=== PATIENT | male | born 2005 | race Caucasian/White ===

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

== ENCOUNTER 2024-09-02 01:09 | Inpatient (IN) | payer MEDICAID, SELFPAY ==
[2024-09-02] VITALS (16 sets, daily range): BP systolic 100–136; BP diastolic 45–75; PULSE 73–105; RESP 16–18; TEMP 36.6–37.7; O2SAT 93–100; BMI 26.3
--- NOTE | ~2024-09-02 | CT_ITS ---
CLINICAL HISTORY: Perforated appendicitis status post lap appendectomy. Postoperative CAT scan demonstrates multiple fluid collections. Patient presents for drainage of the right lower quadrant abscess. PROCEDURES: 1. Limited preprocedure CT of the abdomen. Permanent images saved in PACS. 2. CT-guided drainage of the right lower quadrant/pericecal fluid collection. 3. Limited post procedure CT of the abdomen. Permanent images saved in PACS. CLINICIANS: Albert Madden PA-C Preprocedural imaging reviewed with Dr. Ann MEDICATIONS: -Versed 2 mg, Fentanyl 100 mcg, and lidocaine 1% 10 mL SQ -Antibiotics: None -For additional details, please see nursing flowsheet. COMPLICATIONS: None ESTIMATED BLOOD LOSS: < 5 ml CONTRAST: None SPECIMENS: A specimen was sent for culture. MODERATE SEDATION TIME: 32 min PROCEDURE NOTE: The procedure, risks, benefits, and alternatives were carefully explained to the patient and written informed consent was obtained. The patient was placed supine on the CT table. A timeout was performed. A limited CT of the abdomen was performed to localize the fluid collection and choose appropriate needle entry and trajectory. The patient was prepped and draped in usual sterile fashion. The skin and subcutaneous tissues were anesthetized with lidocaine. Under CT guidance, a trocar was advanced to the fluid collection. Serous fluid was immediately aspirated. A 0.0035 J wire was inserted through the the trocar needle and coiled in the fluid collection. The trocar needle was then removed over the wire. The tract was then serially dilated. Over the wire, a 10 fr all-purpose drainage catheter was advanced and coiled into the fluid collection under CT guidance. The wire was then removed. A total of 15 ml of serous fluid was removed and sent for culture. The catheter was secured to the skin with a 2-0 nylon suture. A GOMEZ bulb was then attached to the drainage catheter. A limited postprocedure CT was then obtained. The patient was stable after the procedure and was transferred to the post anesthesia care unit. The procedure was done under moderate sedation with a dedicated nurse for monitoring of vital signs. CT/CT guided drainage Impression: CT guided drainage of a right lower quadrant/pericecal fluid collection. This procedure was performed by Albert Madden PA-C and supervised by Dr. Ann. Electronically signed by: Nitin Ann MD 09/09/2024 02:50 PM [facility]
--- NOTE | ~2024-09-02 | CT_ITS ---
EXAMINATION: CT ABDOMEN AND PELVIS WITH CONTRAST CLINICAL INFORMATION: Right lower quadrant pain. COMPARISON: None available. TECHNIQUE: Multidetector volumetric images were obtained from the superior aspect of the liver through the pubic symphysis following administration 85 mL of Omnipaque 350 intravenous contrast. Sagittal and coronal reformatted images were obtained on the technologist's workstation. Oral contrast: No This CT examination was performed using dose optimization techniques as appropriate, variously including the following: *Automated exposure control *Adjustment of mA and/or kV according to patient size (this includes techniques or standardized protocols for targeted exams where dose is matched to indication/reason for exam; i.e. extremities or head) *Use of iterative reconstruction technique DLP: 562 mGy-cm FINDINGS: LUNG BASES: The visualized lung bases are unremarkable. LIVER, GALLBLADDER, AND BILIARY TREE: The liver is normal in size, shape, and attenuation. No focal hepatic lesion or biliary ductal dilatation is present. The gallbladder is unremarkable with no evidence of radiopaque gallstones, gallbladder wall thickening, or obvious pericholecystic inflammatory changes. PANCREAS: Unremarkable. SPLEEN: Unremarkable. ADRENAL GLANDS: Unremarkable. KIDNEYS AND URETERS: The kidneys are normal in size, shape, and attenuation. No hydronephrosis, hydroureter, or calculi seen. No perinephric stranding. BLADDER: Unremarkable. GASTROINTESTINAL TRACT: The appendix is abnormally dilated to lateral wall diameter of 13 mm. Mild periappendiceal inflammatory changes present. 4 intraluminal appendicoliths are present within the distal appendix towards the fundus, with the largest measuring 4 mm diameter. The terminal ileum is normal in appearance. Reactive appearing lymph nodes are present adjacent to the cecum. No free intraperitoneal fluid or gas collections identified. Normal appearance of the sigmoid mesentery and small bowel mesentery. Normal appearance of the stomach and duodenum. ABDOMINAL WALL: No significant hernia is appreciated. LYMPH NODES: Normal. VASCULAR: Unremarkable. PELVIC VISCERA: Normal appearance of the prostate and seminal vesicles OSSEOUS STRUCTURES: No suspicious skeletal lesions. CT/CT abdomen pelvis w IV con IMPRESSION: Acute uncomplicated appendicitis. The appendix is dilated to 13 mm in outer wall diameter with mild periappendiceal inflammatory changes and four (4) intraluminal appendicoliths, the largest measuring 4 mm in diameter. No free intraperitoneal fluid or gas collections. Normal terminal ileum. This critical result was discussed with Celine Gwynn, DO by telephone at 09/02/2024 2:59 AM EST and it was ascertained that the content and urgency of the report was understood at the time of direct communication. Electronically signed by: Jacinto Cheek MD 09/02/2024 03:02 AM [facility]
--- NOTE | ~2024-09-02 | CT_ITS ---
EXAMINATION: CT ABDOMEN AND PELVIS WITH CONTRAST CLINICAL INFORMATION: Status post appendectomy. Concerning abscesses. COMPARISON: CT dated September 05, 2024. TECHNIQUE: Multidetector volumetric images were obtained from the superior aspect of the liver through the pubic symphysis following administration 85 mL of Omnipaque 350 intravenous contrast. Sagittal and coronal reformatted images were obtained on the technologist's workstation. Oral contrast: No This CT examination was performed using dose optimization techniques as appropriate, variously including the following: *Automated exposure control *Adjustment of mA and/or kV according to patient size (this includes techniques or standardized protocols for targeted exams where dose is matched to indication/reason for exam; i.e. extremities or head) *Use of iterative reconstruction technique DLP: 398 mGy-cm FINDINGS: [Multiple, probably loculated/, peripheral enhancing fluid collections throughout the pelvic peritoneal cavity and the right hemiabdomen/peritoneal cavity extending from the inferior perihepatic region. There are segmental areas of the wall thickening gas and fluid-filled jejunal loops with air-fluid levels. There are multiple prominent likely reactive lymph nodes in the mesentery and to a lesser extent retroperitoneal/periaortic. Questionable tiny extraluminal air pockets along the right hemicolectomy peritoneal. Liver measures 18 cm. Focal hypodensities in the falciform ligament and left hepatic lobe. Portal veins, hepatic veins and intrahepatic portions of the IVC are patent. Spleen measures 13 cm. No pericholecystic fluid collection or gallbladder wall thickening. No intrahepatic or extrahepatic biliary ductal dilatation. No focal pancreatic lesion or main pancreatic ductal dilatation. No nodular lesions in the adrenal glands. No hydronephrosis in the kidney. Areas of hypodensity and decreased enhancement throughout the kidneys. No aneurysm or dissection abdominal aorta. Bilateral pleural effusions, small to moderate volume. Soft tissue contusion size in the fat planes of the periumbilical and left lower abdominal wall likely related to recent surgical CT. No acute fracture or listhesis in the axial skeleton. CT/CT abdomen pelvis w IV con IMPRESSION: Multifocal, likely loculated peritoneal abscesses. Reactive lymphadenopathy and regional ileus. Discussed with the requesting physician Dr. Vinny Quintanilla at 11:35 AM. Hepatosplenomegaly. Fleischner guidelines were followed. Electronically signed by: Daniel Emerson MD 09/07/2024 11:38 AM EST
--- NOTE | ~2024-09-02 | CT_ITS ---
EXAMINATION: CT ABDOMEN PELVIS WITH IV CONTRAST CLINICAL INFORMATION: Fever post-op COMPARISON: Prior CT scan September 02, 2024 TECHNIQUE: Multidetector volumetric imaging was performed from the superior aspect of the liver through the pubic symphysis 100 mL of Omnipaque 350 injected Sagittal and coronal reformatted images were obtained on the technologist's workstation. This CT examination was performed using dose optimization techniques as appropriate, variously including the following: *Automated exposure control *Adjustment of mA and/or kV according to patient size (this includes techniques or standardized protocols for targeted exams where dose is matched to indication/reason for exam; i.e. extremities or head) *Use of iterative reconstruction technique DLP: 628 mGy-cm FINDINGS: LOWER THORAX: There are bilateral small pleural effusions right more than left with adjacent compression atelectasis at lung bases. HEPATOBILIARY: No focal hepatic lesions. No biliary ductal dilatation. GALLBLADDER: Gallbladder unremarkable. SPLEEN: Spleen is normal in size. PANCREAS: No focal mass or ductal dilatation. STOMACH AND GASTROINTESTINAL TRACT: Stomach is grossly unremarkable. Postsurgical changes from prior appendectomy. The appendix has been removed. Mild pericecal fat stranding probably from recent surgery. Free air in the abdomen, likely from recent appendectomy. No evidence of bowel dilatation or obstruction. ADRENALS: No adrenal nodules. KIDNEYS/URETERS: No hydronephrosis, stones or solid mass lesions. URINARY BLADDER: Partially decompressed. PELVIC VISCERA: Unremarkable PERITONEUM: No free air or fluid. LYMPH NODES: No lymphadenopathy. VASCULAR:Abdominal aorta normal in size, no aneurysm found. BONES, ABDOMINAL WALL AND SOFT TISSUES: Age-appropriate changes of the spine and skeletal system, no destructive osteolytic or osteosclerotic bone lesion found CT/CT abdomen pelvis w IV con IMPRESSION: 1. Postsurgical changes from recent appendectomy. Mild pericecal fat stranding, free air in the abdomen, likely from recent surgery. 2. No evidence of bowel obstruction. 3. Bilateral small pleural effusions right more than left with adjacent compression atelectasis at lung bases. Electronically signed by: Nathalie Cote MD 09/05/2024 12:39 PM [facility]
[2024-09-02 01:36] LABS: MANUAL DIFF FLAG NO
[2024-09-02 01:38] LABS: Basophils Percent Auto 0.3 % (0-2); Hematocrit 43.2 % (42.0-52.0); Hemoglobin 14.7 g/dl (14.0-18.0); Imm Gran Abs Auto 0.05 X10*3/uL (0.00-0.03); Imm Gran Pct Auto 0.4 % (0.0-0.4); Lymphocytes Absolute Auto 0.8 X10*3/uL (1.2-4.9); Lymphocytes Percent Auto 5.7 % (20-40); Mean Corpuscular Hemoglobin 28.4 pg (27.0-33.0); Mean Corpuscular Volume 83.4 fL (80.0-98.0); Mean Platelet Volume 10.8 fL (9.4-12.4); Monocytes Absolute Auto 1.2 X10*3/uL (0.1-1.2); Monocytes Percent Auto 8.5 % (2-11); Neutrophils Absolute Auto 11.9 x10*3/uL (2.0-8.3); Neutrophils Percent Auto 85.1 % (45-73); Platelet Count 223 X10*3/uL (160-400); Red Blood Count 5.18 X10*6/uL (4.60-5.80); Red Cell Distribution Width 12.7 % (11.0-16.0); White Blood Count 13.9 X10*3/uL (4.8-10.8)
[2024-09-02 02:02] LABS: Albumin Level 4.7 g/dL (3.5-5.0); Anion Gap 16 (12-20); Aspartate Amino Transferase 22 U/L (5-37); Bilirubin Total 1.4 mg/dL (0.0-1.0); Blood Urea Nitrogen 15 mg/dL (9-16); Calcium 9.7 mg/dL (8.4-10.2); Carbon Dioxide 25 mmol/L (22-29); Chloride 103 mmol/L (96-108); Creatinine Clr Calc Pharmacy 125.5; Estimated Glomerular Filt Rate > 60; Glucose Random 118 mg/dL (60-115); Lipase 9 U/L (8-78); Potassium 3.4 mmol/L (3.3-5.1); Sodium 141 mmol/L (135-145); Total Protein 8.1 g/dL (6.5-8.0)
[2024-09-02 02:04] LABS: Alanine Aminotransferase 17 U/L (0-40); Alkaline Phosphatase 69 U/L (39-117)
--- NOTE | 2024-09-02 02:12 | ED_ITS ---
HPI - Abdominal Pain General Chief Complaint: Abdominal Pain Stated Complaint: abdominal pain Time Seen by Provider: 09/02/24 01:53 Source: patient and family Mode of arrival: ambulatory Limitations: no limitations History of Present Illness ED Provider: LAVERNE HPI narrative: 19 yo male with no PMH here with c/o RLQ pain and lower abdominal pain with n/v. He notes no diarrhea, fevers. Hurts to move. Has not had this before, no recent travel, procedures, sick contacts MD elicited complaint: abdominal pain Pertinent past history: none Onset (ago): day(s) (1) Pain Consistency: constant Location: RLQ and suprapubic Severity: moderate Quality: aching Migration to: no migration Exacerbating factors: eating and movement Relieving factors: nothing Associated symptoms: nausea and vomiting Related Data Previous Rx's ?Medication ?Instructions ?Recorded ibuprofen 200 mg tablet 400 mg (2 x 200 mg) PO Q8H PRN 04/24/22 pain 7 days #21 tabs polymyxin B sulfate 10,000 1 drp ophthalmic-Left Q3H 7 days 06/28/23 unit-trimethoprim 1 mg/mL eye drops #10 mL Allergies Allergy/AdvReac Type Severity Reaction Status Date / Time No Known Allergies Allergy Verified 09/02/24 01:17 Review of Systems Review of Systems Constitutional : No Weight loss, No Fever, No Chills ENT/Mouth : No sore throat, No Rhinorrhea Eyes: No Swelling, No Redness Cardiovascular : No Chest Pain, No SOB, NoEdema Respiratory : No Cough, No Sputum, No Wheezing Gastrointestinal : Positive Nausea, Positive Vomiting, no Diarrhea, positive abdominal Pain, No Hematochezia, No Melena Genitourinary : No Dysuria, No Urinary Frequency, No Hematuria, No Urgency Musculoskeletal : No joint pain, No Myalgias, No Joint Swelling Skin : No Skin Lesions, No rash Neuro : No Weakness, No Numbness, No Dizziness, No Headache All other systems reviewed and are negative. [facility] Past Medical History Attestation statement: The following information was validated with the patient. Source: old records reviewed Medical History Patient denies medical problems No known health problems Family History Family History (Updated 08/17/20 @ 22:52 by Sloan Tadeo DO) Other Family history non-contributory Social History Social History Alcohol intake: never Advance Directives: No Advance Directives Information Provided: Yes Do you have a plan to hurt others: No Plan Physical Exam ED Vital Signs: Vital Signs - 24 hr 09/02/24 01:16 Temperature 98.5 F Pulse Rate 99 Respiratory Rate 18 Blood Pressure 136/75 Pulse Oximetry 100 Oxygen Delivery Method Room Air BMI result Body Mass Index 26.3 Appearance: Alert. Oriented X3. No acute distress. Eyes: Pupils equal, round and reactive to light. ENT: Pharynx normal. Neck: Normal inspection. Neck supple. CVS: Normal heart rate and rhythm. Pulses normal. Respiratory: No respiratory distress. Breath sounds normal. Abdomen: Soft and moderate lower abdominal ttp, invol guarding RLQ no rebound. Skin: Skin warm and dry. Normal skin color. Normal skin turgor. Extremities: No lower extremity edema. No calf ttp Neuro: Oriented X 3. No motor deficit. No sensory deficit. Medical Decision Making Medical Decision Making [facility] Narrative: 19 yo male no PMH here with RLQ pain and n/v at this time will obtain labs, UA, CT scan for renal colic, appendicitis. Could be viral illness as well. He has no rebound on my exam. Differential Diagnosis Differential Diagnoses: The differential diagnosis associated with the presentation includes viral illness, renal colic, appendicitis Admission/Observation Consideration of admission/observation: Escalation of care including admission/observation considered Lab Data [facility] Lab Attestation statement: I reviewed the patient's lab results. 09/02/24 01:30 09/02/24 01:30 Labs: Lab Results 09/02/24 09/02/24 Range/Units 01:30 01:32 WBC 13.9 H (4.8-10.8) X10*3/uL RBC 5.18 (4.60-5.80) X10*6/uL Hgb 14.7 (14.0-18.0) g/dl Hct 43.2 (42.0-52.0) % MCV 83.4 (80.0-98.0) fL MCH 28.4 (27.0-33.0) pg MCHC 34.0 (31.0-36.0) g/dl RDW 12.7 (11.0-16.0) % Plt Count 223 (160-400) X10*3/uL MPV 10.8 (9.4-12.4) fL Immature Gran % (Auto) 0.4 (0.0-0.4) % Neut % (Auto) 85.1 H (45-73) % Lymph % (Auto) 5.7 L (20-40) % [place] % (Auto) 8.5 (2-11) % Eos % (Auto) 0.0 (0-4) % Baso % (Auto) 0.3 (0-2) % Lymph # (Auto) 0.8 L (1.2-4.9) X10*3/uL [place] # (Auto) 1.2 (0.1-1.2) X10*3/uL Eos # (Auto) 0.0 (0.0-0.4) X10*3/uL Baso # (Auto) 0.0 (0.0-0.2) X10*3/uL Abs Immat Gran (auto) 0.05 H (0.00-0.03) X10*3/uL Absolute Neuts (auto) 11.9 H (2.0-8.3) x10*3/uL Absolute Nucleated RBC 0.000 (0.0-0.012) X10*3/uL Nucleated RBC % (auto) 0.0 (0.0-0.2) /100WBC Sodium 141 (135-145) mmol/L Potassium 3.4 (3.3-5.1) mmol/L Chloride 103 (96-108) mmol/L Carbon Dioxide 25 (22-29) mmol/L Anion Gap 16 (12-20) BUN 15 (9-16) mg/dL Creatinine 1.00 (0.5-1.4) mg/dL Estim Creat Clear Calc 125.5 Estimated GFR > 60 Random Glucose 118 H (60-115) mg/dL Calcium 9.7 (8.4-10.2) mg/dL Total Bilirubin 1.4 H (0.0-1.0) mg/dL AST 22 (5-37) U/L ALT 17 (0-40) U/L Alkaline Phosphatase 69 (39-117) U/L Total Protein 8.1 H (6.5-8.0) g/dL Albumin 4.7 (3.5-5.0) g/dL Lipase 9 (8-78) U/L Influenza Type A (PCR) NEGATIVE (Negative) Influenza Type B (PCR) NEGATIVE (Negative) RSV RNA Qual (PCR) NEGATIVE (Negative) SARS-CoV-2 RNA (RT-PCR) NEGATIVE (Negative) Independent Interpretation I performed an independent interpretation of an: CT Scan Radiology Impression Discussion of test interpretation with radiology: I discussed test interpretation with the radiologist and I have reviewed the radiologist's reading. Radiologist Impression: call from Radiology 259am + appendicitis uncomplicated will notify surgery and admit start on zosyn no SIRS on arrival Independent Historian Clinical information obtained from an independent historian. History obtained from or confirmed by: Parent Medications Administered Discontinued Medications Generic Name Dose Route Start Last Admin Trade Name Freq PRN Reason Stop Dose Admin Sodium Chloride 1,000 mls @ 999 mls/hr 09/02/24 01:53 09/02/24 02:13 Ns IV 09/02/24 02:53 999 mls/hr .Q1H1M ONE Administration Iohexol 85 ml 09/02/24 02:42 09/02/24 02:44 Iohexol 350 Mg/Ml 100 Ml Infus..Btl IV 09/02/24 02:43 85 ml ONCE ONE Administration Ketorolac Tromethamine 15 mg 09/02/24 01:53 09/02/24 02:13 Ketorolac Tromethamine 15 Mg/Ml Vial IVPUSH 09/02/24 01:54 15 mg ONCE ONE Administration Ondansetron HCl 4 mg 09/02/24 01:53 09/02/24 02:13 Ondansetron Hcl 4 Mg/2 Ml Vial IVPUSH 09/02/24 01:54 4 mg ONCE ONE Administration Discharge Plan Discharge Clinical Impression: Abdominal pain, Acute appendicitis Patient Disposition: Admitted As Inpatient Prescriptions: No Action ibuprofen 200 mg tablet 400 mg PO Q8H PRN (Reason: pain) 7 Days Qty: 21 0RF polymyxin B sulf-trimethoprim 10,000 unit- 1 mg/mL drops 1 drp ophthalmic-Left Q3H 7 Days Qty: 10 1RF Rx Instructions: while awake; do not exceed 6 doses in 24 hours Print Language: Macedonian
[2024-09-02] MEDS: ondansetron HCL 4 MG/2 ML VIAL IVPUSH (02:13)
[2024-09-02] MEDS: 0.9 % Sodium Chloride 1,000 ML 999 ML IV (02:13)
[2024-09-02] MEDS: Ketorolac Tromethamine 15 MG/ML VIAL IVPUSH (02:13)
[2024-09-02 02:14] LABS: Influenza A PCR NEGATIVE (Negative); Influenza B PCR NEGATIVE (Negative); Resp Syncy Virus RNA Qual PCR NEGATIVE (Negative); SARS COV2 PCR INHOUSE NEGATIVE (Negative)
[2024-09-02] MEDS: iohexoL 350 MG/ML 100 ML INFUS..BTL 85 ML IV (02:44)
--- NOTE | 2024-09-02 03:12 | PC.NURSE ---
Per MD Mathews, no BCX/lactic needed.
[2024-09-02] MEDS: Piperacillin Sodium/Tazobactam 3.375 GM in 0.9 % Sodium Chloride 50 ML IV ×4 (03:46→22:11)
[2024-09-02] MEDS: Acetaminophen 1,000 MG/100 ML PIGGYBACK 400 MG IV ×4 (03:47→22:46)
--- NOTE | 2024-09-02 03:52 | PC.NURSE ---
Tried to eat soup around 2100 last night. Has been NPO since.
[2024-09-02] MEDS: Dextrose 5 % and Lactated Ring 1,000 ML 125 ML IVCONT ×3 (04:12→17:32)
--- NOTE | 2024-09-02 08:07 | P.HPGS_ITS ---
History of Present Illness History of Present Illness Date of Service: 09/02/24 Chief complaint: Acute Appendicitis Narrative: Nikko Lozano is a 19 year old male presenting with complaints of abdominal pain in the right upper quadrant. This began yesterday as a generalized abdominal pain but then radiated to the right lower quadrant. The pain was associated with nausea and vomiting but without fever or chills. He denies a previous history of similar pain. The pain seems to increase with movement/walking but improves when laying still. He denies diarrhea or constipation. He presented to the emergency department was noted to have an elevated WBC of 13.9. Subsequent CT abdomen and pelvis revealed a distended appendix and surrounding inflammatory changes with fecalith within the lumen suggestive of acute appendicitis. He was admitted to the surgical service for further management of his acute appendicitis. Review of Systems Review of Systems: Yes all other systems are reviewed and are negative Constitutional: Constitutional: Denies anorexia, Denies chills, Denies fever(s) and Reports poor appetite Cardiovascular: Cardiovascular: Reports no additional cardiovascular complaints Respiratory: Respiratory: Denies cough, Denies pain with cough and Denies stridor Gastrointestinal: Gastrointestinal: Reports abdominal pain, Denies diarrhea, Reports nausea and Reports vomiting Genitourinary: Genitourinary: Reports no additional male genitourinary complaints Musculoskeletal: Musculoskeletal: Reports no additional musculoskeletal complaints Integumentary/Breasts: Skin/Breast: Reports system reviewed and no additional complaints, except as docu Neurologic: Reports system reviewed and no additional complaints, except as documented Psychiatric: Psychiatric: Reports no additional psychiatric complaints PMFSH Past Medical History Medical History Patient denies medical problems No known health problems Family History Family History (Updated 08/17/20 @ 22:52 by lSoan Tadeo DO) Other Family history non-contributory Social History Social History Alcohol intake: never Advance Directives: No Advance Directives Information Provided: Yes Do you have a plan to hurt others: No Plan Meds Allergies Allergy/AdvReac Type Severity Reaction Status Date / Time No Known Allergies Allergy Verified 09/02/24 01:17 Active Medications: Current Medications Hydromorphone HCl (Hydromorphone Hcl 0.5 Mg/0.5 Ml Syringe) 0.5 mg IVPUSH Q3H PRN; Protocol PRN Reason: Pain, Severe (Pain Scale 7-10) Acetaminophen (Ofirmev) 1,000 mg in 100 mls @ 400 mls/hr IV Q6H [facility] Stop: 09/02/24 22:14 Last Infusion: 09/02/24 08:02 Dose: Infused Dextrose/Lactated Ringer's (D5lr) 1,000 mls @ 125 mls/hr IVCONT .Q8H [facility] Last Admin: 09/02/24 04:12 Dose: 125 mls/hr Piperacillin Sod/Tazobactam (Sod 3.375 gm/ Sodium Chloride) 50 mls @ 100 mls/hr IV Q6H [facility] [place] Magnesium Hydroxide (Milk Of Magnesia 30 Ml Oral.Susp) 30 ml PO DAILY PRN PRN Reason: Constipation Ondansetron HCl (Ondansetron Hcl 4 Mg/2 Ml Vial) 4 mg IVPUSH QID PRN PRN Reason: Nausea Sodium Chloride (0.9 % Sodium Chloride Flush 3 Ml Syringe) 3 ml IVFLUSH QSHIFT [facility] [place] Last Admin: 09/02/24 08:03 Dose: Not Given Zolpidem Tartrate (Zolpidem Tartrate 5 Mg Tablet) 5 mg PO BEDTIME PRN PRN Reason: Insomnia Physical Exam Vital Signs: Vital Signs: Last Vital Signs Temp 98.5 F 09/02/24 03:14 Pulse 89 09/02/24 03:14 Resp 16 09/02/24 03:14 BP 129/60 09/02/24 03:14 Pulse Ox 99 09/02/24 03:14 O2 Del Method Room Air 09/02/24 03:14 BMI result Body Mass Index 26.3 Const: General: cooperative and no acute distress Nutritional Appearance: well nourished Orientation/consciousness: patient oriented x3 Limitations: no limitations HEENT: Head: Yes normocephalic and Yes atraumatic Ears: hearing grossly normal bilaterally Resp: Effort & Inspection: normal respiratory effort, no audible wheezes, no cough and no respiratory distress Cardio: Jugular venous distension: no JVD GI: Inspection: Yes normal to inspection Palpation (GI): Soft to palpation, Tenderness to palpation present (GI) in the RLQ and Rovsing's sign positive and No hepatosplenomegaly present Percussion: Yes normal to percussion Auscultation: normal bowel sounds Rectal Exam - Male: Yes deferred Skin: Other: Warm, dry, no rash Neuro: General: patient oriented x3 Extrem: General: Yes no clubbing, cyanosis or edema Results Results Labs: Short CBC 09/02/24 Range/Units 01:30 WBC 13.9 H (4.8-10.8) X10*3/uL Hgb 14.7 (14.0-18.0) g/dl Hct 43.2 (42.0-52.0) % Plt Count 223 (160-400) X10*3/uL BMP 09/02/24 01:30 Sodium 141 Potassium 3.4 Chloride 103 Carbon Dioxide 25 BUN 15 Creatinine 1.00 Calcium 9.7 Liver Function 09/02/24 Range/Units 01:30 Total Bilirubin 1.4 H (0.0-1.0) mg/dL AST 22 (5-37) U/L ALT 17 (0-40) U/L Alkaline Phosphatase 69 (39-117) U/L Albumin 4.7 (3.5-5.0) g/dL Abdomen CT scan report/results: image reviewed CT scan - pelvis: image reviewed Assessment and Plan (1) Acute appendicitis: Qualifiers: Acute appendicitis type: with localized peritonitis Appendicitis abscess presence: without abscess Appendicitis gangrene presence: without gangrene Appendicitis perforation presence: without perforation Qualified Code (s): K35.30 - Acute appendicitis with localized peritonitis, without perforation or gangrene Status: Acute Plan 19-year-old male patient presenting with complaints of right lower quadrant abdominal pain of 24 hours duration found to have tenderness in the right lower quadrant over McBurney's point. Workup revealed an elevated WBC and CT revealed changes suggestive of acute appendicitis. I recommended a laparoscopic or possible open appendectomy and after discussion of the procedure, risks, and alternatives, consents to the surgery. He has been added onto the operative schedule for today. Quality Stroke Does the patient have a stroke diagnosis?: No VTE Prior VTE?: No VTE Risk Level:: Surgical - low VTE Device Contraindication: N/A - Device Ordered VTE Drug Contraindication: Treatment Not Indicated Procedures Date of Service Date of Service: 09/02/24
--- NOTE | 2024-09-02 09:18 | PHA.MEDREC ---
Addendum entered by Waleska Dupree RPh 09/02/24 09:20: Reviewed by [facility] Original Note: Pharmacy Consult ? Medication Reconciliation Pharmacy has completed the medication reconciliation.
--- NOTE | 2024-09-02 10:21 | PC.NURSE ---
new 22gIV placed in the right wrist - medication administered per provider order. pt seen by ED provider/aware of plan of care in regards to being admitted at this time. pt waiting to be seen by hospitalist at this time. plan of care ongoing. call siddiqui placed within reach.
--- NOTE | 2024-09-02 10:49 | MHC.CM.PN ---
Attempted to meet with patient in regards to discharge planning. Patient currently sleeping. No famly present. Will attempt to meet again. Continue to monitor for d/c needs.
--- NOTE | 2024-09-02 11:05 | PC.NURSE ---
report given to Jarek RN in short stay at this time. ETA for pickup between 12-12:30. patient notified/aware.
[2024-09-02] MEDS: HYDROmorphone HCl 0.5 MG/0.5 ML SYRINGE IVPUSH ×4 (12:19→23:05)
--- NOTE | 2024-09-02 12:21 | PC.NURSE ---
vss and up to date at this time. pt verbalizing increase in pain in RLQ at this time. prn medication utilized. effectiveness pending. IVF continues to infuse @ 125mls/hr at this time. pt still waiting to go to the OR at this time. plan of care ongoing. call siddiqui placed within reach.
--- NOTE | 2024-09-02 12:39 | PC.NURSE ---
pt being transported to OR at this time.
[2024-09-02] MEDS: Lactated Ringers 1,000 ML 80 ML IVCONT (13:06)
--- NOTE | 2024-09-02 13:21 | HO.ANESPROP2 ---
HPI - Anesthesia Eval Consult details Narrative: for lap appendectomy PMFSH Active Problems Active Problems: All Active Problems Acute appendicitis (Acute) Abdominal pain (Acute) Past Medical History Medical History Patient denies medical problems No known health problems Family History Family History (Updated 08/17/20 @ 22:52 by Sloan Tadeo DO) Other Family history non-contributory Family history of problems with anesthesia: No Surgical History History of Problems with Anesthesia: No Social History Social History Alcohol intake: never Patient Tobacco Use Status: Never used Tobacco Second Hand Smoke Exposure: No Meds Allergies Allergy/AdvReac Type Severity Reaction Status Date / Time No Known Allergies Allergy Verified 09/02/24 01:17 Active Medications: Current Medications Hydromorphone HCl (Hydromorphone Hcl 0.5 Mg/0.5 Ml Syringe) 0.5 mg IVPUSH Q3H PRN; Protocol PRN Reason: Pain, Severe (Pain Scale 7-10) Last Admin: 09/02/24 12:19 Dose: 0.5 mg Acetaminophen (Ofirmev) 1,000 mg in 100 mls @ 400 mls/hr IV Q6H [facility] Stop: 09/02/24 22:14 Last Infusion: 09/02/24 10:19 Dose: Infused Dextrose/Lactated Ringer's (D5lr) 1,000 mls @ 125 mls/hr IVCONT .Q8H [facility] Last Admin: 09/02/24 11:51 Dose: 125 mls/hr Piperacillin Sod/Tazobactam (Sod 3.375 gm/ Sodium Chloride) 50 mls @ 100 mls/hr IV Q6H [facility] Last Infusion: 09/02/24 10:35 Dose: Infused Lactated Ringer's (Lr) 1,000 mls @ 80 mls/hr IVCONT .[id number] [facility] Last Admin: 09/02/24 13:06 Dose: 80 mls/hr Magnesium Hydroxide (Milk Of Magnesia 30 Ml Oral.Susp) 30 ml PO DAILY PRN PRN Reason: Constipation Ondansetron HCl (Ondansetron Hcl 4 Mg/2 Ml Vial) 4 mg IVPUSH QID PRN PRN Reason: Nausea Sodium Chloride (0.9 % Sodium Chloride Flush 3 Ml Syringe) 3 ml IVFLUSH QSHIFT [facility] Last Admin: 09/02/24 08:03 Dose: Not Given Zolpidem Tartrate (Zolpidem Tartrate 5 Mg Tablet) 5 mg PO BEDTIME PRN PRN Reason: Insomnia Home Medications ?Medication ?Instructions ?Recorded ?Confirmed ?Last Taken ?Type No Known Home Meds 09/02/24 09/02/24 Unknown History Exam Height,Weight and Vital Signs: Height 5 ft 11.65 in Weight 87.2 kg Last Vital Signs Temp 99.9 F 09/02/24 13:01 Pulse 91 09/02/24 13:01 Resp 16 09/02/24 13:01 BP 108/46 L 09/02/24 13:01 Pulse Ox 98 09/02/24 13:01 O2 Del Method Room Air 09/02/24 13:01 Pertinent Lab Results Pertinent Lab Results: Laboratory Tests 09/02/24 09/02/24 01:30 01:32 WBC 13.9 H RBC 5.18 Hgb 14.7 Hct 43.2 MCV 83.4 MCH 28.4 MCHC 34.0 RDW 12.7 Plt Count 223 MPV 10.8 Immature Gran % (Auto) 0.4 Neut % (Auto) 85.1 H Lymph % (Auto) 5.7 L [place] % (Auto) 8.5 Eos % (Auto) 0.0 Baso % (Auto) 0.3 Lymph # (Auto) 0.8 L [place] # (Auto) 1.2 Eos # (Auto) 0.0 Baso # (Auto) 0.0 Abs Immat Gran (auto) 0.05 H Absolute Neuts (auto) 11.9 H Absolute Nucleated RBC 0.000 Nucleated RBC % (auto) 0.0 Sodium 141 Potassium 3.4 Chloride 103 Carbon Dioxide 25 Anion Gap 16 BUN 15 Creatinine 1.00 Estim Creat Clear Calc 125.5 Estimated GFR > 60 Random Glucose 118 H Calcium 9.7 Total Bilirubin 1.4 H AST 22 ALT 17 Alkaline Phosphatase 69 Total Protein 8.1 H Albumin 4.7 Lipase 9 Influenza Type A (PCR) NEGATIVE Influenza Type B (PCR) NEGATIVE RSV RNA Qual (PCR) NEGATIVE SARS-CoV-2 RNA (RT-PCR) NEGATIVE Airway Mallampati Class: II TM Dist: >3cm Neck ROM: Full Loose/Missing/Broken Teeth: No Heart: ok Lungs: ok Assessment and Plan Assessment Anesthesia Assessment: Anesthesia Plan Discussed and Chart Reviewed Final Anesthetic Review Family History of Problems with Anesthesia: No History of Problems with Anesthesia: No NPO: Yes ASA Class: I Final Preanesthetic Review: No Changes in Pt Med Stat, Meds/Allgs Chart Reviewed, Consent Obtained/Reviewed and Anes Risks/Benef Reviewed Patient Risk: Low Procedure Risk: Intermediate Anesthetic Plan Anesthetic Plan: GA and Agree w/ Assess. and Plan Disposition: Standard PACU
--- NOTE | 2024-09-02 13:36 | PC.NURSE ---
Patient stated he has not been able to urinate for 2 days. Bladder scanned for 660ML. Patient ambulated to bathroom and reports being able to urinate. Dr. Hendrix and Dr. Peña at bedside and aware.
--- NOTE | 2024-09-02 14:40 | W.PM.OPN ---
Operative Note Operative Note Date of Service: 09/02/24 Narrative: Preoperative diagnosis: Acute appendicitis Postoperative diagnosis: Same Procedure: Laparoscopic appendectomy Surgeon: Vinny Hendrix MD Assembly Lead Person:Radha Walter PA-C Anesthesia: General endotracheal Indications for procedure: 19-year-old male presenting with complaints of abdominal pain in the right lower quadrant associated with nausea and vomiting. Workup revealed an elevated WBC and CT abdomen and pelvis revealed a thickened appendix with fecalith within the appendix. Findings suggestive of acute appendicitis. Operative findings: perforated appendicitis with fecaliths and purulent collection. Surrounding phlegmon involving the appendix and mesentery. Specimen: appendix Estimated blood loss: 2 mls Complications: none Procedure details: Patient was brought to the OR and placed in a supine position. After administering general anesthesia the patient's abdomen was prepped with ChloraPrep and draped in a sterile fashion. A surgical time-out was called and consent confirmed. Patient received preoperative antibiotics and Venodyne boots were in place. Local anesthesia consisting of 0.75% Sensorcaine with epinephrine was infiltrated in periumbilical region. A 5 mm incision was made below the umbilicus and carried down through subcutaneous tissue. A Veress needle was then inserted while elevating abdominal cavity with towel clips. After a positive drop test the abdomen was insufflated to a pressure of 15 mm of mercury. The Veress needle was removed and a 5 mm trocar inserted. The camera was then inserted in the abdomen explored. A 2nd 5 mm trocars placed in the lower midline. A 12 mm trocar was then placed in the left lower quadrant. The patient was then placed in a Trendelenburg position and rotated to the left. The appendix was identified in the right lower quadrant and brought up using blunt dissecting clamps. The mesentery of the appendix was then divided using the LigaSure. The appendiceal artery was cauterized and divided using the LigaSure. Dissection was continued down to the base of the cecum. An Endo-RAHEEM stapler with a purple reload was then used to divide the appendix at the base with the cecum. The appendix was then placed in Endo-Catch bag and brought out through the left lower quadrant incision. The abdomen was then irrigated with saline solution and suctioned dry. Wounds were checked for hemostasis. CO2 was then evacuated from the abdominal cavity and all trocars removed. Fascia was closed in the left lower quadrant incision using a [id number] 0 Polysorb suture. Skin was closed at all incisions using a subcuticular 4-0 Polysorb suture. Steri-Strips 2 x 2 gauze and Tegaderm were then applied. The patient tolerated the procedure well. Sponge, instrument, needle counts reported as correct. The patient was transferred to PACU in stable condition.
[2024-09-02] MEDS: 0.9 % Sodium Chloride Flush 3 ML SYRINGE IVFLUSH (17:06)
[2024-09-03] MEDS: Dextrose 5 % and Lactated Ring 1,000 ML 125 ML IVCONT (01:15)
[2024-09-03] MEDS: HYDROmorphone HCl 0.5 MG/0.5 ML SYRINGE IVPUSH ×4 (03:27→23:35)
[2024-09-03] MEDS: Piperacillin Sodium/Tazobactam 3.375 GM in 0.9 % Sodium Chloride 50 ML IV ×4 (03:28→21:02)
[2024-09-03 04:00] VITALS: BP 128/62; PULSE 98; RESP 16; TEMP 37; O2SAT 99
[2024-09-03 07:45] VITALS: BP 126/60; PULSE 95; RESP 16; TEMP 37.3; O2SAT 99
[2024-09-03] MEDS: oxyCODONE HCl Immed Release 5 MG TABLET PO ×2 (07:59→13:54)
[2024-09-03] MEDS: Acetaminophen 325 MG TABLET 975 MG PO ×3 (07:59→21:01)
[2024-09-03] MEDS: 0.9 % Sodium Chloride Flush 3 ML SYRINGE IVFLUSH ×3 (08:03→23:26)
--- NOTE | 2024-09-03 08:07 | P.PNGS_ITS ---
Subjective Subjective Date of Service: 09/03/24 Interval history: Patient is sleepy this morning. Complaining of abdominal pain at the incisions with some abdominal bloating. Did not take much p.o. yesterday. Physical Exam 2 Vital Signs: Vital Signs: Last Vital Signs Temp 99.2 F 09/03/24 07:45 Pulse 95 09/03/24 07:45 Resp 16 09/03/24 07:45 BP 126/60 09/03/24 07:45 Pulse Ox 99 09/03/24 07:45 O2 Del Method Room Air 09/03/24 07:45 O2 Flow Rate 4 09/02/24 15:03 BMI result Body Mass Index 26.3 Const: General: no acute distress Nutritional Appearance: well nourished Orientation/consciousness: patient oriented x3 Resp: Effort & Inspection: normal respiratory effort, no audible wheezes, no cough and no respiratory distress GI: Other: Trocar incisions clean, dry and intact. Abdomen mildly distended. Skin: Other: Warm, dry, no rash Neuro: General: patient oriented x3 Extrem: Other: No edema Objective Data Active Medications Acetaminophen (Acetaminophen 325 Mg Tablet) 975 mg PO Q6H [facility] Last Admin: 09/03/24 07:59 Dose: 975 mg Documented By: JONES Hydromorphone HCl (Hydromorphone Hcl 0.5 Mg/0.5 Ml Syringe) 0.5 mg IVPUSH Q3H PRN; Protocol PRN Reason: Pain, Severe (Pain Scale 7-10) Last Admin: 09/03/24 06:40 Dose: 0.5 mg Documented By: RENZO Dextrose/Lactated Ringer's (D5lr) 1,000 mls @ 125 mls/hr IVCONT .Q8H [facility] Last Admin: 09/03/24 01:15 Dose: 125 mls/hr Documented By: RENZO Piperacillin Sod/Tazobactam (Sod 3.375 gm/ Sodium Chloride) 50 mls @ 100 mls/hr IV Q6H [facility] Last Infusion: 09/03/24 04:00 Dose: Infused Documented By: RENZO Ketorolac Tromethamine (Ketorolac Tromethamine 30 Mg/Ml Vial) 30 mg IVPUSH Q6H PRN PRN Reason: Pain, Mild (Pain Scale 1-3) Magnesium Hydroxide (Milk Of Magnesia 30 Ml Oral.Susp) 30 ml PO DAILY PRN PRN Reason: Constipation Naloxone HCl (Naloxone Hcl 0.4 Mg/Ml Vial) 0.04 mg IVPUSH Q5M PRN PRN Reason: Excessive sedation or RR < 8 Ondansetron HCl (Ondansetron Hcl 4 Mg/2 Ml Vial) 4 mg IVPUSH QID PRN PRN Reason: Nausea Oxycodone HCl (Oxycodone Hcl Immed Release 5 Mg Tablet) 5 mg PO Q4H PRN PRN Reason: Pain, Moderate(Pain Scale 4-6) Last Admin: 09/03/24 07:59 Dose: 5 mg Documented By: JONES Sodium Chloride (0.9 % Sodium Chloride Flush 3 Ml Syringe) 3 ml IVFLUSH [facility] Last Admin: 09/03/24 08:03 Dose: 3 ml Documented By: JONES Zolpidem Tartrate (Zolpidem Tartrate 5 Mg Tablet) 5 mg PO BEDTIME PRN PRN Reason: Insomnia Labs 09/02/24 01:30 09/02/24 01:30 Procedures Date of Service Date of Service: 09/03/24 Progress Note: A&P Assessment and plan (1) Acute appendicitis: Status: Acute (2) S/P laparoscopic appendectomy: Status: Acute Plan Pod 1 following laparoscopic appendectomy. Patient found to have localized perforation with purulence discharge. Surrounding phlegmon. Patient needs continued antibiotics. Encouraged out of bed and ambulation. Time Spent With Patient Time: Total time managing care of this patient today ____ minutes. Quality Stroke Does the patient have a stroke diagnosis?: No VTE Prior VTE?: No VTE Risk Level:: Surgical - low VTE Device Contraindication: N/A - Device Ordered VTE Drug Contraindication: Treatment Not Indicated
[2024-09-03] MEDS: Ketorolac Tromethamine 30 MG/ML VIAL IVPUSH (11:12)
[2024-09-03 15:06] VITALS: BP 107/55; PULSE 86; RESP 14; TEMP 37; O2SAT 98
--- NOTE | 2024-09-03 16:10 | MHC.CM.PN ---
PT REPORTS HE LIVES WITH HIS MOTHER AND IS INDEPENDENT WITH CARE HE HAS NO DME AND NO SERVICES PT DECLINES TO COMPLETE A HCP PCP: TEN PALOMARES DCP: HOME NO SERVICES VIA PRIVATE TRANSPORT
[2024-09-03 19:13] VITALS: BP 130/62; PULSE 97; RESP 16; TEMP 36.6; O2SAT 100
[2024-09-03 23:41] VITALS: BP 108/51; PULSE 99
[2024-09-04] MEDS: Acetaminophen 325 MG TABLET 975 MG PO ×4 (03:11→19:02)
[2024-09-04 03:41] VITALS: BP 129/71; PULSE 104; RESP 18; TEMP 37; O2SAT 99
[2024-09-04] MEDS: Piperacillin Sodium/Tazobactam 3.375 GM in 0.9 % Sodium Chloride 50 ML IV ×4 (03:44→21:13)
--- NOTE | 2024-09-04 05:35 | PC.NURSE ---
Patient states pain 10/10 and feels a little worse. c/o bloating, states he is passing gas but no BM post op. No nausea/vomiting.
[2024-09-04 05:38] VITALS: BP 126/57; PULSE 102
[2024-09-04] MEDS: HYDROmorphone HCl 0.5 MG/0.5 ML SYRINGE IVPUSH ×3 (05:51→12:51)
--- NOTE | 2024-09-04 05:55 | PC.NURSE ---
Patient slowly to the bathroom with much pain and difficulty. required two doses IV dilaudid tonight. Urine is tea colored, encouraged fluids. Given mikhail niurka and jello.
[2024-09-04 07:29] VITALS: BP 130/61; PULSE 95; RESP 16; TEMP 36.5; O2SAT 99
--- NOTE | 2024-09-04 09:48 | PM.PNGS ---
Subjective Subjective Date of Service: 09/04/24 Interval history: tolerating diet c/o incisional pain no events reported Physical Exam Vital Signs: Vital Signs: Last Vital Signs Temp 97.7 F 09/04/24 07:29 Pulse 95 09/04/24 07:29 Resp 16 09/04/24 07:29 BP 130/61 09/04/24 07:29 Pulse Ox 99 09/04/24 07:29 O2 Del Method Room Air 09/04/24 07:29 O2 Flow Rate 4 09/02/24 15:03 BMI result Body Mass Index 26.3 Const: General: comfortable and no acute distress Resp: Effort & Inspection: normal respiratory effort Cardio: Rate: regular rate GI: Palpation (GI): Soft to palpation, not firm, Tenderness to palpation present (GI) (tender on incisions) and no guarding Objective Data Active Medications Acetaminophen (Acetaminophen 325 Mg Tablet) 975 mg PO Q6H [facility] Last Admin: 09/04/24 09:04 Dose: 975 mg Documented By: ELIN Hydromorphone HCl (Hydromorphone Hcl 0.5 Mg/0.5 Ml Syringe) 0.5 mg IVPUSH Q3H PRN; Protocol PRN Reason: Pain, Severe (Pain Scale 7-10) Last Admin: 09/04/24 09:08 Dose: 0.5 mg Documented By: ELIN Piperacillin Sod/Tazobactam (Sod 3.375 gm/ Sodium Chloride) 50 mls @ 100 mls/hr IV Q6H [facility] Last Infusion: 09/04/24 09:39 Dose: Infused Documented By: ELIN Ketorolac Tromethamine (Ketorolac Tromethamine 30 Mg/Ml Vial) 30 mg IVPUSH Q6H PRN PRN Reason: Pain, Mild (Pain Scale 1-3) Last Admin: 09/03/24 11:12 Dose: 30 mg Documented By: JONES Magnesium Hydroxide (Milk Of Magnesia 30 Ml Oral.Susp) 30 ml PO DAILY PRN PRN Reason: Constipation Naloxone HCl (Naloxone Hcl 0.4 Mg/Ml Vial) 0.04 mg IVPUSH Q5M PRN PRN Reason: Excessive sedation or RR < 8 Ondansetron HCl (Ondansetron Hcl 4 Mg/2 Ml Vial) 4 mg IVPUSH QID PRN PRN Reason: Nausea Oxycodone HCl (Oxycodone Hcl Immed Release 5 Mg Tablet) 5 mg PO Q4H PRN PRN Reason: Pain, Moderate(Pain Scale 4-6) Last Admin: 09/03/24 13:54 Dose: 5 mg Documented By: DOROTHY Sodium Chloride (0.9 % Sodium Chloride Flush 3 Ml Syringe) 3 ml IVFLUSH QSHIFT [facility] Last Admin: 09/04/24 07:22 Dose: Not Given Documented By: ELIN Non-Admin Reason: Previously Administered Zolpidem Tartrate (Zolpidem Tartrate 5 Mg Tablet) 5 mg PO BEDTIME PRN PRN Reason: Insomnia Labs 09/02/24 01:30 09/02/24 01:30 Procedures Date of Service Date of Service: 09/04/24 Progress Note: A&P Assessment and plan (1) Acute appendicitis: Status: Acute Assessment and Plan: s/p lap appy he does not feel ready to be discharged looks well encourage ambulation pain mgt on diet possible home corona mendez Time Spent With Patient Time: Total time managing care of this patient today ____ minutes. Quality Stroke Does the patient have a stroke diagnosis?: No VTE Prior VTE?: No VTE Risk Level:: Surgical - low VTE Device Contraindication: N/A - Device Ordered VTE Drug Contraindication: Treatment Not Indicated
--- NOTE | 2024-09-04 14:46 | PM.EVENT ---
Event Note Date of Service: 09/04/24 Event Note: Seen on afternoon rounds According to staff, he does not get out of bed Abdomen is soft Appears comfortable although a little anxious Tolerating diet I emphasized to him the importance of getting out of bed and ambulating Taper down narcotics if possible Clinically well overall Time Spent With Patient Time: Total time managing care of this patient today ____ minutes.
[2024-09-04 15:09] VITALS: BP 116/56; PULSE 99; RESP 16; TEMP 36.6; O2SAT 98
[2024-09-04] MEDS: oxyCODONE HCl Immed Release 5 MG TABLET PO ×2 (15:52→19:41)
[2024-09-04] MEDS: Milk of Magnesia 30 ML ORAL.SUSP PO (15:56)
--- NOTE | 2024-09-04 16:20 | PC.NURSE ---
Pt needs encouragement to mobilize. instructed on need to ambulate and be out of bed more then in bed. continue to reinforce
[2024-09-04 19:01] VITALS: BP 118/57; PULSE 101; RESP 16; TEMP 37; O2SAT 97
[2024-09-05] VITALS (7 sets, daily range): BP systolic 119–133; BP diastolic 57–67; PULSE 89–118; RESP 16–20; TEMP 36.3–39.5; O2SAT 97–100
[2024-09-05] MEDS: Acetaminophen 325 MG TABLET 975 MG PO ×4 (03:03→19:44)
[2024-09-05] MEDS: 0.9 % Sodium Chloride Flush 3 ML SYRINGE IVFLUSH ×3 (03:05→14:59)
[2024-09-05] MEDS: Piperacillin Sodium/Tazobactam 3.375 GM in 0.9 % Sodium Chloride 50 ML IV ×4 (03:25→22:41)
[2024-09-05] MEDS: iohexoL 350 MG/ML 100 ML INFUS..BTL 85 ML IV (05:32)
[2024-09-05] MEDS: Lactated Ringers 1,000 ML 80 ML IVCONT (06:00)
--- NOTE | 2024-09-05 06:49 | PC.NURSE ---
Pt Ax4 on R/A, S/P Appendectomy 09/02, he is complaining of dizziness, epigastric pain and bilateral lower abdominal pain, no nausea/ reported pop twice yesterday and this morning, described as normal consistency, describe pain/discomfort as Feels like my abdomen is tuning over, and feel like something is closing in throat when taking a deep breathe. No resp distress, when prompt describe pain as throbbing/pulsation, Temporal temp 103.3 oral 103.1, HR 121, gave schedule Tylenol and Ice pcks, recheck 100.9. Reached out to oncall provider Lori Pina, who ordered Toradol prn if temp was still elevated, recheck temp within an hour 100.9. 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 Patient educated, verbalize understanding, interventions carried out, see chart for details. At end of shift CT results pending, call made to department @0705 results still pending.
--- NOTE | 2024-09-05 07:05 | PC.NURSE ---
CT results not available,Radiology contacted,they will reach out to a doctor
[2024-09-05] MEDS: HYDROmorphone HCl 0.5 MG/0.5 ML SYRINGE IVPUSH (07:36)
[2024-09-05 09:27] LABS: Hematocrit 39.2 % (42.0-52.0); Hemoglobin 12.9 g/dl (14.0-18.0); Mean Corpuscular HGB Conc 32.9 g/dl (31.0-36.0); Mean Corpuscular Hemoglobin 28.7 pg (27.0-33.0); Mean Corpuscular Volume 87.1 fL (80.0-98.0); Mean Platelet Volume 10.9 fL (9.4-12.4); Platelet Count 219 X10*3/uL (160-400); Red Cell Distribution Width 12.9 % (11.0-16.0); White Blood Count 10.7 X10*3/uL (4.8-10.8)
[2024-09-05 09:39] LABS: Anion Gap 10 (12-20); Blood Urea Nitrogen 12 mg/dL (9-16); Calcium 9.1 mg/dL (8.4-10.2); Carbon Dioxide 25 mmol/L (22-29); Chloride 109 mmol/L (96-108); Estimated Glomerular Filt Rate > 60; Glucose Random 92 mg/dL (60-115); Potassium 3.8 mmol/L (3.3-5.1); Sodium 140 mmol/L (135-145)
--- NOTE | 2024-09-05 10:20 | PM.PNGS ---
Subjective Subjective Date of Service: 09/05/24 Interval history: Had a fever 103 this morning at 03:30 Afebrile now He actually says he is feeling much better this morning Pain much improved States he had been ambulating last night Hungry and wants to eat Physical Exam Vital Signs: Vital Signs: Last Vital Signs Temp 98.2 F 09/05/24 07:11 Pulse 96 09/05/24 07:11 Resp 16 09/05/24 07:11 BP 133/67 09/05/24 07:11 Pulse Ox 100 09/05/24 07:11 O2 Del Method Room Air 09/05/24 07:11 O2 Flow Rate 4 09/02/24 15:03 BMI result Body Mass Index 26.3 Const: Other: Looks well General: comfortable and no acute distress Resp: Effort & Inspection: normal respiratory effort Cardio: Rate: regular rate GI: Palpation (GI): Soft to palpation, not firm, Tenderness to palpation present (GI) (Some tenderness diffusely but much improved) and no guarding Objective Data Active Medications Acetaminophen (Acetaminophen 325 Mg Tablet) 975 mg PO Q6H [facility] Last Admin: 09/05/24 08:42 Dose: 975 mg Documented By: PHUONG Hydromorphone HCl (Hydromorphone Hcl 0.5 Mg/0.5 Ml Syringe) 0.5 mg IVPUSH Q3H PRN; Protocol PRN Reason: Pain, Severe (Pain Scale 7-10) Last Admin: 09/05/24 07:36 Dose: 0.5 mg Documented By: PHUONG Piperacillin Sod/Tazobactam (Sod 3.375 gm/ Sodium Chloride) 50 mls @ 100 mls/hr IV Q6H [facility] Last Admin: 09/05/24 09:33 Dose: 100 mls/hr Documented By: PHUONG Lactated Ringer's (Lr) 1,000 mls @ 80 mls/hr IVCONT .[id number] [facility] Stop: 09/06/24 23:59 Last Admin: 09/05/24 06:00 Dose: 80 mls/hr Documented By: DICKSON Ketorolac Tromethamine (Ketorolac Tromethamine 30 Mg/Ml Vial) 30 mg IVPUSH Q6H PRN PRN Reason: Pain, Mild (Pain Scale 1-3) Last Admin: 09/03/24 11:12 Dose: 30 mg Documented By: JONES Ketorolac Tromethamine (Ketorolac Tromethamine 30 Mg/Ml Vial) 30 mg IVPUSH ONCE PRN PRN Reason: fever Magnesium Hydroxide (Milk Of Magnesia 30 Ml Oral.Susp) 30 ml PO DAILY PRN PRN Reason: Constipation Last Admin: 09/04/24 15:56 Dose: 30 ml Documented By: VALERIO Naloxone HCl (Naloxone Hcl 0.4 Mg/Ml Vial) 0.04 mg IVPUSH Q5M PRN PRN Reason: Excessive sedation or RR < 8 Ondansetron HCl (Ondansetron Hcl 4 Mg/2 Ml Vial) 4 mg IVPUSH QID PRN PRN Reason: Nausea Oxycodone HCl (Oxycodone Hcl Immed Release 5 Mg Tablet) 5 mg PO Q4H PRN PRN Reason: Pain, Moderate(Pain Scale 4-6) Last Admin: 09/04/24 19:41 Dose: 5 mg Documented By: EDNA Sodium Chloride (0.9 % Sodium Chloride Flush 3 Ml Syringe) 3 ml IVFLUSH [facility] Last Admin: 09/05/24 07:37 Dose: 3 ml Documented By: PHUONG Zolpidem Tartrate (Zolpidem Tartrate 5 Mg Tablet) 5 mg PO BEDTIME PRN PRN Reason: Insomnia Labs 09/05/24 09:19 09/05/24 09:19 Labs: Laboratory Results - last 24 hr 09/05/24 09:19 MCV 87.1 MCH 28.7 MCHC 32.9 RDW 12.9 Plt Count 219 MPV 10.9 Absolute Nucleated RBC 0.000 Nucleated RBC % (auto) 0.0 Anion Gap 10 L Estim Creat Clear Calc 141.0 Estimated GFR > 60 Random Glucose 92 Calcium 9.1 D Procedures Date of Service Date of Service: 09/05/24 Progress Note: A&P Assessment and plan (1) S/P laparoscopic appendectomy: Status: Acute Assessment and Plan: Doing well this morning Had a fever at 03:30 a.m. Labs okay - WBC normal CT scan order because of high fever - free fluid seen on the right gutter Clinically much better Okay to have regular food Continue IV antibiotic Encouraged ambulation Time Spent With Patient Time: Total time managing care of this patient today ____ minutes. Quality Stroke Does the patient have a stroke diagnosis?: No VTE Prior VTE?: No VTE Risk Level:: Surgical - low VTE Device Contraindication: N/A - Device Ordered VTE Drug Contraindication: Treatment Not Indicated
[2024-09-05] MEDS: oxyCODONE HCl Immed Release 5 MG TABLET PO ×2 (12:19→16:26)
--- NOTE | 2024-09-05 13:43 | PM.EVENT ---
Event Note Date of Service: 09/05/24 Event Note: seen on afternoon rounds he continues to feel better has been ambulating more tolerating diet no fever abd soft doing well CT report - free fluid, small amount of pericecal free air c/w postop clinical doing well now possible home tomorrow if he remains afebrile x 24 hr Time Spent With Patient Time: Total time managing care of this patient today ____ minutes.
[2024-09-05] MEDS: Ketorolac Tromethamine 30 MG/ML VIAL IVPUSH (23:18)
[2024-09-06] VITALS (8 sets, daily range): BP systolic 130–141; BP diastolic 65–78; PULSE 80–102; RESP 14–18; TEMP 36.7–38.1; O2SAT 99–100
[2024-09-06] MEDS: Piperacillin Sodium/Tazobactam 3.375 GM in 0.9 % Sodium Chloride 50 ML IV ×4 (03:42→21:57)
[2024-09-06] MEDS: oxyCODONE HCl Immed Release 5 MG TABLET PO ×3 (03:47→14:23)
[2024-09-06] MEDS: 0.9 % Sodium Chloride Flush 3 ML SYRINGE IVFLUSH ×3 (03:51→16:05)
--- NOTE | 2024-09-06 07:53 | P.PNGS_ITS ---
Subjective Subjective Date of Service: 09/06/24 <Radha Walter PA-C - Last Filed: 09/06/24 07:56> 09/06/24 <Vinny Hendrix MD - Last Filed: 09/06/24 09:15> Interval history: Febrile over the weekend. Repeat CT scan therefore performed- normal post op changes. No leukocytosis. Has been without fever for >24h. Last dose tylenol at 1900. Feels better this morning. Some mild pain. Tolerating solid diet. < Radha Walter PA-C - Last Filed: 09/06/24 07:56> Physical Exam 2 Vital Signs: Vital Signs: Last Vital Signs Temp 98.8 F 09/06/24 07:27 Pulse 94 09/06/24 07:27 Resp 14 09/06/24 07:27 BP 140/68 H 09/06/24 07:27 Pulse Ox 100 09/06/24 07:27 O2 Del Method Room Air 09/06/24 07:27 O2 Flow Rate 4 09/02/24 15:03 BMI result Body Mass Index 26.3 <Radha Walter PA-C - Last Filed: 09/06/24 07:56> Const: General: comfortable, no acute distress and alert <LALITHA Aguilar Last Filed: 09/06/24 07:56> Orientation/consciousness: patient oriented x3 <Radha Walter PA-C - Last Filed: 09/06/24 07:56> Resp: Effort & Inspection: normal respiratory effort <Radha Walter PA-C - Last Filed: 09/06/24 07:56> GI: Inspection: No distended and Yes incision (clean) <Radha Walter PA-C - Last Filed: 09/06/24 07:56> Palpation (GI): Soft to palpation and Tenderness to palpation present (GI) (mild incisional) <LALITHA Aguilar Last Filed: 09/06/24 07:56> Skin: General skin exam: no rashes or lesions noted <LALITHA Aguilar Last Filed: 09/06/24 07:56> Neuro: General: patient oriented x3 and moves all extremities <Radha Walter PA-C - Last Filed: 09/06/24 07:56> Objective Data Active Medications Acetaminophen (Acetaminophen 325 Mg Tablet) 975 mg PO Q6H [facility] Last Admin: 09/06/24 07:48 Dose: Not Given Documented By: URIEL Non-Admin Reason: Physician Held Med Hydromorphone HCl (Hydromorphone Hcl 0.5 Mg/0.5 Ml Syringe) 0.5 mg IVPUSH Q3H PRN; Protocol PRN Reason: Pain, Severe (Pain Scale 7-10) Last Admin: 09/05/24 07:36 Dose: 0.5 mg Documented By: PHUONG Piperacillin Sod/Tazobactam (Sod 3.375 gm/ Sodium Chloride) 50 mls @ 100 mls/hr IV Q6H [facility] Last Infusion: 09/06/24 04:22 Dose: Infused Documented By: MARYA Ketorolac Tromethamine (Ketorolac Tromethamine 30 Mg/Ml Vial) 30 mg IVPUSH Q6H PRN PRN Reason: Pain, Mild (Pain Scale 1-3) Last Admin: 09/05/24 23:18 Dose: 30 mg Documented By: MARYA Magnesium Hydroxide (Milk Of Magnesia 30 Ml Oral.Susp) 30 ml PO DAILY PRN PRN Reason: Constipation Last Admin: 09/04/24 15:56 Dose: 30 ml Documented By: VALERIO Naloxone HCl (Naloxone Hcl 0.4 Mg/Ml Vial) 0.04 mg IVPUSH Q5M PRN PRN Reason: Excessive sedation or RR < 8 Ondansetron HCl (Ondansetron Hcl 4 Mg/2 Ml Vial) 4 mg IVPUSH QID PRN PRN Reason: Nausea Oxycodone HCl (Oxycodone Hcl Immed Release 5 Mg Tablet) 5 mg PO Q4H PRN PRN Reason: Pain, Moderate(Pain Scale 4-6) Last Admin: 09/06/24 03:47 Dose: 5 mg Documented By: MARYA Sodium Chloride (0.9 % Sodium Chloride Flush 3 Ml Syringe) [facility] Last Admin: 09/06/24 03:51 Dose: 3 ml Documented By: MARYA <LALITHA Aguilar Last Filed: 09/06/24 07:56> Labs CBC & Chem 7: 09/05/24 09:19 09/05/24 09:19 <Radha Walter PA-C - Last Filed: 09/06/24 07:56> Labs: Laboratory Results - last 24 hr 09/05/24 09:19 MCV 87.1 MCH 28.7 MCHC 32.9 RDW 12.9 Plt Count 219 MPV 10.9 Absolute Nucleated RBC 0.000 Nucleated RBC % (auto) 0.0 Anion Gap 10 L Estim Creat Clear Calc 141.0 Estimated GFR > 60 Random Glucose 92 Calcium 9.1 D <Radha Walter PA-C - Last Filed: 09/06/24 07:56> Procedures Date of Service Date of Service: 09/06/24 <Radha Walter PA-C - Last Filed: 09/06/24 07:56> 09/06/24 <Vinny Hendrix MD - Last Filed: 09/06/24 09:15> Progress Note: A&P Assessment and plan (1) S/P laparoscopic appendectomy: Status: Acute <Radha Walter PA-C - Last Filed: 09/06/24 07:56> Assessment and Plan: Afebrile >24h. Will reassess following breakfast. If remains afebrile, stable for dc to home. Abd benign, clean incisions. Hemodynamically stable, O2 sat 100 on RA. Encouraged OOB/ambulation and continued IS use 10x/hr. Patient comfortable with plan. F/u in office in 1 week. <Radha Walter PA-C - Last Filed: 09/06/24 07:56> Afebrile >24h. Will reassess following breakfast. If remains afebrile, stable for dc to home. Abd benign, clean incisions. Hemodynamically stable, O2 sat 100 on RA. Encouraged OOB/ambulation and continued IS use 10x/hr. Patient comfortable with plan. F/u in office in 1 week. Patient seen and examined. Events of the weekend noted. CT reviewed as well. Agree with the above assessment and plan. Possible discharge later today. Patient understands and agrees with the plan. <Vinny Hendrix MD - Last Filed: 09/06/24 09:15> Time Spent With Patient Time: Total time managing care of this patient today ____ minutes. <Radha Walter PA-C - Last Filed: 09/06/24 07:56> Quality Stroke Does the patient have a stroke diagnosis?: No <Radha Walter PA-C - Last Filed: 09/06/24 07:56> VTE Prior VTE?: No <Radha Walter PA-C - Last Filed: 09/06/24 07:56> VTE Risk Level:: Surgical - low <Radha Walter PA-C - Last Filed: 09/06/24 07:56> VTE Device Contraindication: N/A - Device Ordered <Radha Walter PA-C - Last Filed: 09/06/24 07:56> VTE Drug Contraindication: Treatment Not Indicated <Radha Walter PA-C - Last Filed: 09/06/24 07:56>
--- NOTE | 2024-09-06 10:50 | PC.NURSE ---
Patient's oral temp of 100.5F- Dr. Hendrix notified. Patient warm to touch. Denies chills. Patient not medicated at this time per Dr. Hendrix. Plan to monitor temperature and notifity MD if greater than 101F.
[2024-09-06] MEDS: HYDROmorphone HCl 0.5 MG/0.5 ML SYRINGE IVPUSH (11:28)
--- NOTE | 2024-09-06 14:21 | MHC.CM.PN ---
PT NOT MEDICALLY CLEARED, FEBRILE. DCP: HOME NO SERVICES VIA PRIVATE TRANSPORT
[2024-09-06] MEDS: HYDROmorphone HCl 2 MG TABLET PO ×2 (16:04→20:58)
[2024-09-07] MEDS: 0.9 % Sodium Chloride Flush 3 ML SYRINGE IVFLUSH ×2 (02:43→21:22)
[2024-09-07] MEDS: HYDROmorphone HCl 0.5 MG/0.5 ML SYRINGE IVPUSH ×5 (02:43→21:21)
[2024-09-07 03:40] VITALS: BP 134/65; PULSE 86; RESP 18; TEMP 37.1; O2SAT 97
[2024-09-07] MEDS: Piperacillin Sodium/Tazobactam 3.375 GM in 0.9 % Sodium Chloride 50 ML IV ×4 (03:53→21:22)
[2024-09-07 08:00] VITALS: BP 130/63; PULSE 110; RESP 18; TEMP 36.3; O2SAT 99
--- NOTE | 2024-09-07 08:19 | P.PNGS_ITS ---
Subjective Subjective Date of Service: 09/07/24 Interval history: Continuing to report abdominal pain in the right lower quadrant, not being covered by pain medication. temperature has remained afebrile. Not much of an appetite still. Physical Exam 2 Vital Signs: Vital Signs: Last Vital Signs Temp 97.4 F 09/07/24 08:00 Pulse 110 H 09/07/24 08:00 Resp 18 09/07/24 08:00 BP 130/63 09/07/24 08:00 Pulse Ox 99 09/07/24 08:00 O2 Del Method Room Air 09/07/24 08:00 O2 Flow Rate 4 09/02/24 15:03 BMI result Body Mass Index 26.3 Const: General: no acute distress Nutritional Appearance: well nourished Orientation/consciousness: patient oriented x3 Resp: Effort & Inspection: normal respiratory effort GI: Other: Mildly distended, tender in the lower quadrants. Incisions clean, dry, and intact. Neuro: General: patient oriented x3 Extrem: Other: No edema Objective Data Active Medications Acetaminophen (Acetaminophen 325 Mg Tablet) 975 mg PO Q6H PRN PRN Reason: fever, headache, pain1-3 Hydromorphone HCl (Hydromorphone Hcl 0.5 Mg/0.5 Ml Syringe) 0.5 mg IVPUSH Q3H PRN; Protocol PRN Reason: Pain, Severe (Pain Scale 7-10) Last Admin: 09/07/24 02:43 Dose: 0.5 mg Documented By: JUSTO Hydromorphone HCl (Hydromorphone Hcl 2 Mg Tablet) 2 mg PO Q4H PRN PRN Reason: Pain, Moderate(Pain Scale 4-6) Last Admin: 09/06/24 20:58 Dose: 2 mg Documented By: JUSTO Piperacillin Sod/Tazobactam (Sod 3.375 gm/ Sodium Chloride) 50 mls @ 100 mls/hr IV Q6H [facility] Last Infusion: 09/07/24 04:23 Dose: Infused Documented By: JUSTO Magnesium Hydroxide (Milk Of Magnesia 30 Ml Oral.Susp) 30 ml PO DAILY PRN PRN Reason: Constipation Last Admin: 09/04/24 15:56 Dose: 30 ml Documented By: VALERIO Naloxone HCl (Naloxone Hcl 0.4 Mg/Ml Vial) 0.04 mg IVPUSH Q5M PRN PRN Reason: Excessive sedation or RR < 8 Ondansetron HCl (Ondansetron Hcl 4 Mg/2 Ml Vial) 4 mg IVPUSH QID PRN PRN Reason: Nausea Sodium Chloride (0.9 % Sodium Chloride Flush 3 Ml Syringe) 3 ml IVFLUSH QSHIFT [facility] Last Admin: 09/07/24 02:43 Dose: 3 ml Documented By: JUSTO Labs 09/05/24 09:19 09/05/24 09:19 Procedures Date of Service Date of Service: 09/07/24 Progress Note: A&P Assessment and plan (1) S/P laparoscopic appendectomy: Status: Acute (2) Appendicitis with perforation: Status: Acute Plan 19-year-old male patient found to have perforated appendicitis pod 5 following laparoscopic appendectomy and washout. Patient continues to have lower abdominal pain but no fever. Will repeat CBC and CT abdomen and pelvis to re- evaluate for abscess. Patient understands and agrees with the plan. Time Spent With Patient Time: Total time managing care of this patient today ____ minutes. Quality Stroke Does the patient have a stroke diagnosis?: No VTE Prior VTE?: No VTE Risk Level:: Surgical - low VTE Device Contraindication: N/A - Device Ordered VTE Drug Contraindication: Treatment Not Indicated
[2024-09-07] MEDS: iohexoL 350 MG/ML 100 ML INFUS..BTL IV (09:26)
[2024-09-07 10:15] LABS: Basophils Percent Auto 0.3 % (0-2); Eosinophils Absolute Auto 0.1 X10*3/uL (0.0-0.4); Hematocrit 41.1 % (42.0-52.0); Hemoglobin 13.3 g/dl (14.0-18.0); Imm Gran Abs Auto 0.09 X10*3/uL (0.00-0.03); Lymphocytes Absolute Auto 1.1 X10*3/uL (1.2-4.9); Lymphocytes Percent Auto 11.3 % (20-40); MANUAL DIFF FLAG SCAN; Mean Corpuscular HGB Conc 32.4 g/dl (31.0-36.0); Mean Corpuscular Hemoglobin 27.9 pg (27.0-33.0); Mean Corpuscular Volume 86.3 fL (80.0-98.0); Mean Platelet Volume 11.3 fL (9.4-12.4); Monocytes Absolute Auto 0.7 X10*3/uL (0.1-1.2); Monocytes Percent Auto 7.7 % (2-11); Neutrophils Absolute Auto 7.4 x10*3/uL (2.0-8.3); Neutrophils Percent Auto 78.7 % (45-73); Platelet Count 295 X10*3/uL (160-400); Red Blood Count 4.76 X10*6/uL (4.60-5.80); Red Cell Distribution Width 12.9 % (11.0-16.0); SCAN SMEAR FLAG 1; White Blood Count 9.4 X10*3/uL (4.8-10.8)
[2024-09-07 10:42] LABS: SLIDE REVIEW VERIFIED
[2024-09-07 15:30] VITALS: BP 140/80; PULSE 94; RESP 18; TEMP 36.8; O2SAT 99
[2024-09-07 19:33] VITALS: BP 138/75; PULSE 88; RESP 18; TEMP 36.6; O2SAT 98
[2024-09-07] MEDS: Docusate Sodium 100 MG CAPSULE PO (21:22)
[2024-09-08] VITALS (23 sets, daily range): BP systolic 104–144; BP diastolic 61–86; PULSE 76–97; RESP 12–21; TEMP 36.1–37.3; O2SAT 96–100
[2024-09-08] MEDS: HYDROmorphone HCl 0.5 MG/0.5 ML SYRINGE IVPUSH ×7 (00:17→20:59)
[2024-09-08] MEDS: Piperacillin Sodium/Tazobactam 3.375 GM in 0.9 % Sodium Chloride 50 ML IV ×4 (03:52→21:41)
--- NOTE | 2024-09-08 07:58 | PM.PNGS ---
Subjective Subjective Date of Service: 09/08/24 Interval history: Reports not much of an appetite last night. He has remained afebrile for 2 days. Still reporting abdominal pain. Awaiting IR drainage this morning. Physical Exam Vital Signs: Vital Signs: Last Vital Signs Temp 97.1 F 09/08/24 07:37 Pulse 84 09/08/24 07:37 Resp 16 09/08/24 07:37 BP 129/68 09/08/24 07:37 Pulse Ox 98 09/08/24 07:37 O2 Del Method Room Air 09/08/24 07:37 O2 Flow Rate 4 09/02/24 15:03 BMI result Body Mass Index 26.3 Const: General: anxious Nutritional Appearance: well nourished Orientation/consciousness: patient oriented x3 Resp: Effort & Inspection: normal respiratory effort GI: Other: Trocar incisions clean, dry, and intact. Inspection: Yes normal to inspection Palpation (GI): Soft to palpation and Tenderness to palpation present (GI) in the RLQ and in the RUQ Neuro: General: patient oriented x3 Extrem: General: No edema Objective Data Active Medications Acetaminophen (Acetaminophen 325 Mg Tablet) 975 mg PO Q6H PRN PRN Reason: fever, headache, pain1-3 Docusate Sodium (Docusate Sodium 100 Mg Capsule) 100 mg PO BID [facility] Last Admin: 09/07/24 21:22 Dose: 100 mg Documented By: JUSTO Hydromorphone HCl (Hydromorphone Hcl 0.5 Mg/0.5 Ml Syringe) 0.5 mg IVPUSH Q3H PRN; Protocol PRN Reason: Pain, Severe (Pain Scale 7-10) Last Admin: 09/08/24 03:55 Dose: 0.5 mg Documented By: JUSTO Hydromorphone HCl (Hydromorphone Hcl 2 Mg Tablet) 2 mg PO Q4H PRN PRN Reason: Pain, Moderate(Pain Scale 4-6) Last Admin: 09/06/24 20:58 Dose: 2 mg Documented By: JUSTO Piperacillin Sod/Tazobactam (Sod 3.375 gm/ Sodium Chloride) 50 mls @ 100 mls/hr IV Q6H [facility] Last Infusion: 09/08/24 04:24 Dose: Infused Documented By: HO.ODRISM Magnesium Hydroxide (Milk Of Magnesia 30 Ml Oral.Susp) 30 ml PO DAILY PRN PRN Reason: Constipation Last Admin: 09/04/24 15:56 Dose: 30 ml Documented By: VALERIO Naloxone HCl (Naloxone Hcl 0.4 Mg/Ml Vial) 0.04 mg IVPUSH Q5M PRN PRN Reason: Excessive sedation or RR < 8 Ondansetron HCl (Ondansetron Hcl 4 Mg/2 Ml Vial) 4 mg IVPUSH QID PRN PRN Reason: Nausea Polyethylene Glycol (Polyethylene Glycol 3350 17 Gm Powd.Pack) 17 gm PO DAILY MELISSA Sodium Chloride (0.9 % Sodium Chloride Flush 3 Ml Syringe) 3 ml IVFLUSH QSHIFT MELISSA Last Admin: 09/07/24 21:22 Dose: 3 ml Documented By: JUSTO Labs 09/07/24 08:54 09/05/24 09:19 Labs: Laboratory Results - last 24 hr 09/07/24 08:54 MCV 86.3 MCH 27.9 MCHC 32.4 RDW 12.9 Plt Count 295 D MPV 11.3 Immature Gran % (Auto) 1.0 H Neut % (Auto) 78.7 H Lymph % (Auto) 11.3 L Eagle % (Auto) 7.7 Eos % (Auto) 1.0 Baso % (Auto) 0.3 Lymph # (Auto) 1.1 L [place] # (Auto) 0.7 Eos # (Auto) 0.1 Baso # (Auto) 0.0 Abs Immat Gran (auto) 0.09 H Absolute Neuts (auto) 7.4 Absolute Nucleated RBC 0.000 Nucleated RBC % (auto) 0.0 Smear Tech's Comments VERIFIED Procedures Date of Service Date of Service: 09/08/24 Progress Note: A&P Assessment and plan (1) S/P laparoscopic appendectomy: Status: Acute (2) Appendicitis with perforation: Status: Acute Plan 19-year-old male with perforated appendicitis status post laparoscopic appendectomy now determined to have an abscess by CT. Awaiting IR drainage. Further management based on cultures. Time Spent With Patient Time: Total time managing care of this patient today ____ minutes. Quality Stroke Does the patient have a stroke diagnosis?: No VTE Prior VTE?: No VTE Risk Level:: Surgical - low VTE Device Contraindication: N/A - Device Ordered VTE Drug Contraindication: Treatment Not Indicated
[2024-09-08] MEDS: 0.9 % Sodium Chloride Flush 3 ML SYRINGE IVFLUSH ×3 (08:13→21:02)
[2024-09-08] MEDS: Docusate Sodium 100 MG CAPSULE PO ×2 (08:13→20:52)
[2024-09-08] MEDS: Acetaminophen 325 MG TABLET 975 MG PO (11:32)
--- NOTE | 2024-09-08 11:49 | MHC.CM.PN ---
EMR REVIEWED. PATIENT NOT MEDICALLY CLEARED FOR DC. CM WILL CONTINUE TO FOLLOW.
[2024-09-08] MEDS: Midazolam HCl/PF 2 MG/2 ML VIAL 1 MG IVPUSH ×3 (13:31→13:46)
[2024-09-08] MEDS: fentaNYL citrate/PF 100 MCG/2 ML VIAL 50 MCG IVPUSH (13:31)
[2024-09-08] MEDS: fentaNYL citrate/PF 100 MCG/2 ML VIAL 25 MCG IVPUSH ×2 (13:36→13:46)
--- NOTE | 2024-09-08 14:33 | PCN2_ITS ---
Brief Operative Note Date of procedure: 09/08/24 Pre-op diagnosis: Intraabominal fluid collections, s/p appendectomy for perfor ated appendicit Post-op diagnosis: same Procedure: CT drainage of RLQ abscess -10 fr drain placed into right lower quadrant fuid collection adjacent to cecum. 15 cc serous fluid aspirated for culture. Patient unable to tolerate additional procedure despite moderate sedation, therefore, drainage of the small subhepatic collection was not performed. This can be re-evaluated in the future if patient's status does not improve.
[2024-09-09] MEDS: HYDROmorphone HCl 0.5 MG/0.5 ML SYRINGE IVPUSH ×5 (00:07→18:32)
[2024-09-09 03:55] VITALS: BP 133/60; PULSE 98; RESP 18; TEMP 37.1; O2SAT 98
[2024-09-09] MEDS: Piperacillin Sodium/Tazobactam 3.375 GM in 0.9 % Sodium Chloride 50 ML IV ×4 (04:01→22:15)
[2024-09-09 07:21] VITALS: BP 132/74; PULSE 95; RESP 18; TEMP 36.4; O2SAT 97
[2024-09-09] MEDS: 0.9 % Sodium Chloride Flush 3 ML SYRINGE IVFLUSH ×3 (07:23→22:15)
[2024-09-09] MEDS: polyethylene glycoL 3350 17 GM POWD.PACK PO (07:23)
[2024-09-09] MEDS: Docusate Sodium 100 MG CAPSULE PO ×2 (07:23→20:59)
--- NOTE | 2024-09-09 08:43 | PM.PNGS ---
Subjective Subjective Date of Service: 09/09/24 Interval history: Continues to c/o RLQ pain, virtually unchanged following drainage. Dilaudid helping but wears off quickly. Physical Exam Vital Signs: Vital Signs: Last Vital Signs Temp 97.6 F 09/09/24 07:21 Pulse 95 09/09/24 07:21 Resp 18 09/09/24 07:21 BP 132/74 09/09/24 07:21 Pulse Ox 97 09/09/24 07:21 O2 Del Method Room Air 09/09/24 07:21 O2 Flow Rate 2 09/08/24 13:55 BMI result Body Mass Index 26.3 Const: General: healthy appearing, comfortable, no acute distress and alert; No ill appearing Orientation/consciousness: patient oriented x3 Resp: Effort & Inspection: normal respiratory effort GI: Other: tender in the RLQ surrounding drain site bulb with no drainage, scant serous appearing drainage in the drain tubing Inspection: No distended Palpation (GI): Soft to palpation and no guarding Skin: General skin exam: no rashes or lesions noted Neuro: General: patient oriented x3 and moves all extremities Objective Data Active Medications Acetaminophen (Acetaminophen 325 Mg Tablet) 975 mg PO Q6H PRN PRN Reason: fever, headache, pain1-3 Last Admin: 09/08/24 11:32 Dose: 975 mg Documented By: BIENVENIDO Docusate Sodium (Docusate Sodium 100 Mg Capsule) 100 mg PO BID [facility] Last Admin: 09/09/24 07:23 Dose: 100 mg Documented By: RAVIN Hydromorphone HCl (Hydromorphone Hcl 0.5 Mg/0.5 Ml Syringe) 0.5 mg IVPUSH Q3H PRN; Protocol PRN Reason: Pain, Severe (Pain Scale 7-10) Last Admin: 09/09/24 07:23 Dose: 0.5 mg Documented By: LEOOINEvelia Hydromorphone HCl (Hydromorphone Hcl 2 Mg Tablet) 2 mg PO Q4H PRN PRN Reason: Pain, Moderate(Pain Scale 4-6) Last Admin: 09/06/24 20:58 Dose: 2 mg Documented By: JUSTO Piperacillin Sod/Tazobactam (Sod 3.375 gm/ Sodium Chloride) 50 mls @ 100 mls/hr IV Q6H [facility] Last Infusion: 09/09/24 04:31 Dose: Infused Documented By: BILLY Magnesium Hydroxide (Milk Of Magnesia 30 Ml Oral.Susp) 30 ml PO DAILY PRN PRN Reason: Constipation Last Admin: 09/04/24 15:56 Dose: 30 ml Documented By: VALERIO Naloxone HCl (Naloxone Hcl 0.4 Mg/Ml Vial) 0.04 mg IVPUSH Q5M PRN PRN Reason: Excessive sedation or RR < 8 Ondansetron HCl (Ondansetron Hcl 4 Mg/2 Ml Vial) 4 mg IVPUSH QID PRN PRN Reason: Nausea Polyethylene Glycol (Polyethylene Glycol 3350 17 Gm Powd.Pack) 17 gm PO DAILY [facility] Last Admin: 09/09/24 07:23 Dose: 17 gm Documented By: RAVIN Sodium Chloride (0.9 % Sodium Chloride Flush 3 Ml Syringe) 3 ml IVFLUSH QSHIFT [facility] Last Admin: 09/09/24 07:23 Dose: 3 ml Documented By: RAVIN Labs 09/07/24 08:54 09/05/24 09:19 Microbiology Microbiology Results: Microbiology 09/08/24 14:00 Gram Stain - Final Abscess Appendiceal Routine Culture - Preliminary No growth to date. Anaerobic Culture - Preliminary No growth to date. Procedures Date of Service Date of Service: 09/09/24 Progress Note: A&P Assessment and plan (1) Appendicitis with perforation: Status: Acute (2) S/P laparoscopic appendectomy: Status: Acute Plan 1 week s/p lap appy for perforated appendicitis. Became febrile, tachycardic during his post op course and had persistent RLQ abd pain. F/u CT scan abd/pelvis showed subhepatic and cecal fluid collections. IR drainage was performed yesterday with 15 cc of serous fluid aspirated at right lower quadrant fluid collection adjacent to cecum. He however did not tolerated this well and drainage of the small subhepatic collection was not performed. Post operative WBC has been normal. This morning he reports continued severe pain. He is hemodynamically stable and afebrile. Will remove drain later this morning as it has very scant serous appearing output and gram stain/cultures with no growth, consistent with irrigation fluid and not abscess. Transition to PO analgesics. Encouraged increasing activity and ambulation in preparation for discharge to home hopefully later today or tomorrow. Time Spent With Patient Time: Total time managing care of this patient today ____ minutes. Quality Stroke Does the patient have a stroke diagnosis?: No VTE Prior VTE?: No VTE Risk Level:: Surgical - low VTE Device Contraindication: N/A - Device Ordered VTE Drug Contraindication: Treatment Not Indicated
[2024-09-09] MEDS: Ibuprofen 800 MG TABLET PO ×2 (12:19→20:59)
[2024-09-09 15:01] VITALS: BP 126/76; PULSE 86; RESP 18; TEMP 36.6; O2SAT 96
[2024-09-09 19:07] VITALS: BP 131/75; PULSE 88; RESP 18; TEMP 36.6; O2SAT 98
[2024-09-10] MEDS: Ibuprofen 800 MG TABLET PO (03:43)
[2024-09-10] MEDS: Piperacillin Sodium/Tazobactam 3.375 GM in 0.9 % Sodium Chloride 50 ML IV (03:44)
[2024-09-10 04:00] VITALS: BP 125/67; PULSE 79; RESP 18; TEMP 36.7; O2SAT 98
[2024-09-10 07:21] VITALS: BP 130/63; PULSE 78; RESP 18; TEMP 36.3; O2SAT 100
[2024-09-10] MEDS: Docusate Sodium 100 MG CAPSULE PO (07:54)
[2024-09-10] MEDS: Acetaminophen 325 MG TABLET 975 MG PO (07:54)
[2024-09-10] MEDS: HYDROmorphone HCl 2 MG TABLET 4 MG PO (07:54)
[2024-09-10] MEDS: polyethylene glycoL 3350 17 GM POWD.PACK PO (07:55)
[2024-09-10] MEDS: 0.9 % Sodium Chloride Flush 3 ML SYRINGE IVFLUSH (07:55)
--- NOTE | 2024-09-10 08:50 | PM.PNGS ---
Subjective Subjective Date of Service: 09/10/24 Interval history: Reports less abdominal pain, feels improved after removal of catheter. Physical Exam Vital Signs: Vital Signs: Last Vital Signs Temp 97.4 F 09/10/24 07:21 Pulse 78 09/10/24 07:21 Resp 18 09/10/24 07:21 BP 130/63 09/10/24 07:21 Pulse Ox 100 09/10/24 07:21 O2 Del Method Room Air 09/10/24 07:21 O2 Flow Rate 2 09/08/24 13:55 BMI result Body Mass Index 26.3 Const: General: no acute distress Nutritional Appearance: well nourished Orientation/consciousness: patient oriented x3 Resp: Effort & Inspection: normal respiratory effort GI: Other: Soft and nondistended. Trocar incisions clean, dry, and intact. Neuro: General: patient oriented x3 Extrem: General: No edema Objective Data Active Medications Acetaminophen (Acetaminophen 325 Mg Tablet) 975 mg PO Q6H PRN PRN Reason: fever, headache, pain1-3 Last Admin: 09/10/24 07:54 Dose: 975 mg Documented By: RAVIN Docusate Sodium (Docusate Sodium 100 Mg Capsule) 100 mg PO BID [facility] Last Admin: 09/10/24 07:54 Dose: 100 mg Documented By: RAVIN Hydromorphone HCl (Hydromorphone Hcl 0.5 Mg/0.5 Ml Syringe) 0.5 mg IVPUSH Q3H PRN; Protocol PRN Reason: Pain, Severe (Pain Scale 7-10) Last Admin: 09/09/24 18:32 Dose: 0.5 mg Documented By: RAVIN Hydromorphone HCl (Hydromorphone Hcl 2 Mg Tablet) 4 mg PO Q4H PRN PRN Reason: Pain, Moderate(Pain Scale 4-6) Last Admin: 09/10/24 07:54 Dose: 4 mg Documented By: RAVIN Piperacillin Sod/Tazobactam (Sod 3.375 gm/ Sodium Chloride) 50 mls @ 100 mls/hr IV Q6H [facility] Last Infusion: 09/10/24 04:15 Dose: Infused Documented By: BILLY Ibuprofen (Ibuprofen 800 Mg Tablet) 800 mg PO Q8H [facility] Last Admin: 09/10/24 03:43 Dose: 800 mg Documented By: BILLY Magnesium Hydroxide (Milk Of Magnesia 30 Ml Oral.Susp) 30 ml PO DAILY PRN PRN Reason: Constipation Last Admin: 09/04/24 15:56 Dose: 30 ml Documented By: VALERIO Naloxone HCl (Naloxone Hcl 0.4 Mg/Ml Vial) 0.04 mg IVPUSH Q5M PRN PRN Reason: Excessive sedation or RR < 8 Ondansetron HCl (Ondansetron Hcl 4 Mg/2 Ml Vial) 4 mg IVPUSH QID PRN PRN Reason: Nausea Polyethylene Glycol (Polyethylene Glycol 3350 17 Gm Powd.Pack) 17 gm PO DAILY [facility] Last Admin: 09/10/24 07:55 Dose: 17 gm Documented By: RAVIN Sodium Chloride (0.9 % Sodium Chloride Flush 3 Ml Syringe) 3 ml IVFLUSH QSHIFT [facility] Last Admin: 09/10/24 07:55 Dose: 3 ml Documented By: RAVIN Labs 09/07/24 08:54 09/05/24 09:19 Microbiology Microbiology Results: Microbiology 09/08/24 14:00 Gram Stain - Final Abscess Appendiceal Routine Culture - Final No growth after 2 days Anaerobic Culture - Preliminary No growth to date. Procedures Date of Service Date of Service: 09/10/24 Progress Note: A&P Assessment and plan (1) S/P laparoscopic appendectomy: Status: Acute (2) Appendicitis with perforation: Status: Acute Plan 19-year-old male patient status post laparoscopic appendectomy for perforated appendicitis. Drainage of fluid with no growth after 2 days. Patient is much improved today with less abdominal pain. He is tolerating regular diet without nausea or vomiting. Plan is for discharge to home today on oral antibiotics. He should follow up in the office in approximately 1 week. Time Spent With Patient Time: Total time managing care of this patient today ____ minutes. Quality Stroke Does the patient have a stroke diagnosis?: No VTE Prior VTE?: No VTE Risk Level:: Surgical - low VTE Device Contraindication: N/A - Device Ordered VTE Drug Contraindication: Treatment Not Indicated
--- NOTE | 2024-09-10 09:06 | MHC.CM.PN ---
Patient medically cleared for dc home self care. Private transport.
--- NOTE | 2024-09-10 12:14 | P.DS_ITS ---
DS: Providers Provider Date of Service: 09/10/24 Date of admission: 09/02/24 03:10 Date of discharge: 09/10/24 Primary care physician: Lucina Crawford Attending physician on admission: Vinny Hendrix Attending physician on discharge: Vinny Hendrix DS: Diagnosis Discharge Diagnosis (1) S/P laparoscopic appendectomy: Status: Acute (2) Appendicitis with perforation: Status: Acute DS: Summary Hospital Course Hospital Course: HPI AT ADMISSION: Nikko Lozano is a 19 year old male presenting with complaints of abdominal pain in the right upper quadrant. This began yesterday as a generalized abdominal pain but then radiated to the right lower quadrant. The pain was associated with nausea and vomiting but without fever or chills. He denies a previous history of similar pain. The pain seems to increase with movement/walking but improves when laying still. He denies diarrhea or constipation. He presented to the emergency department was noted to have an elevated WBC of 13.9. Subsequent CT abdomen and pelvis revealed a distended appendix and surrounding inflammatory changes with fecalith within the lumen suggestive of acute appendicitis. HOSPITAL COURSE: The patient was admitted to the surgical service for further treatment of the acute appendicitis. He elected to proceed with laparoscopic appendectomy. He was added onto the OR schedule for that day. On 09/02/24, a laparoscopic appendectomy was performed by Dr. Hendrix without complication. He was found to have perforated appendicitis with fecaliths and purulent collection with surrounding phlegmon involving the appendix and mesentery. The patient tolerated the procedure well. He had a slow recovery course. He was continued on IV zosyn post operatively given the perforation. His diet was advanced. He was encouraged to ambulate and increase his activity however patient was resistant. He developed a fever post operatively up to [address] scan abd/pelvis ordered which initially showed free fluid, small amount of pericecal free air c/w postop changes. His WBC remained normal. He continued to have severe RLQ pain and therefore Ct scan was repeated which showed a subhepatic fluid collection and one surrounding the cecum more consistent with abscess. IR drainage was therefore ordered and performed on 09/08/24 with aspiration of 15 cc of serous fluid of the right lower quadrant fluid collection adjacent to cecum. He however did not tolerated this well and drainage of the small subhepatic collection was not performed. The drain had very scant serous appearing output and had no growth on the gram stain/culture and the patient continued to c/o pain at the drain site. The drain was therefore removed. He was encouraged to use only oral analgesics in preparation for discharge. On the day of discharge, he felt well and was tolerating a solid diet without nausea or vomiting, had good pain control and was ambulating without difficulty. He was hemodynamically stable and afebrile >48h. His abdomen was benign with clean incisions. He felt ready for discharge. He was discharged to home on 09/10/24 in stable condition on oral augmentin. He is to follow up in the office in 1 week. Status at Discharge Functional status at discharge: independent ambulation Overall status at discharge: patient is progressing back to baseline Time Attestation Discharge Coordination Time (in mins): 45 Quality: Safe Use of Opioids Does Pt have an Active Cancer Diagnosis on the Problem List?: No Quality: Stroke Does the patient have a stroke diagnosis?: No Physical Exam Vital Signs: Vital Signs: Last Vital Signs Temp 97.4 F 09/10/24 07:21 Pulse 78 09/10/24 07:21 Resp 18 09/10/24 07:21 BP 130/63 09/10/24 07:21 Pulse Ox 100 09/10/24 07:21 O2 Del Method Room Air 09/10/24 07:21 O2 Flow Rate 2 09/08/24 13:55 BMI result Body Mass Index 26.3 Const: General: comfortable, no acute distress and alert Orientation/consc iousness: patient oriented x3 Resp: Effort & Inspection: normal respiratory effort GI: Inspection: No distended and Yes incision (clean) Palpation (GI): Soft to palpation, Tenderness to palpation present (GI) (mild RLQ ) and no guarding Skin: General skin exam: no rashes or lesions noted Neuro: General: patient oriented x3 and moves all extremities DS: Data Data Completed and Pending Completed studies during hospitalization [Text1]: 09/02/24 14:14 Surgical [PTH] Routine Appendix, appendectomy: Acute appendicitis, with necrosis and marked periappendicitis, extending to the proximal margin Discharge Plan Discharge Anticipated Discharge Date/Time: 09/04/24 14:42 Patient Disposition: Home, Self-Care Discharge Diagnosis: acute perforated appendicitis Referrals: [facility] [Physician] - 1 Week Vinny Hendrix MD [Physician] - 1 Week Discharge Medications: New docusate sodium [Colace] 100 mg capsule 100 mg PO BID Qty: 30 0RF oxycodone 5 mg tablet 5 mg PO Q4H PRN (Reason: pain (scale score 7-10)) Qty: 20 0RF Rx Instructions: Partial Fill upon patient request. amoxicillin-pot clavulanate 875-125 mg tablet 1 tab PO BID Qty: 10 0RF Discharge Orders: Discharge Order (Routine); Ordered 09/10/24 Ordered By: Vinny Hendrix Diet: Advance to usual diet Activity on Discharge: No heavy lifting Stand Alone Forms: Patient Portal Discharge page Print Language: Sami Activity Restrictions/Additional Instructions: If the incision area is tender, you may apply an ice pack for short intervals (No more than 20 minutes on, followed by at least 20 minutes off). Do not apply heat. Do not use creams, lotions, or topical antibiotics. Ok to shower. Remove clear dressings 3 days following your procedure. You have steri strips (small white cloth strips) covering your incision- these will fall off ~1 week. No heavy lifting (>10lbs) or strenuous activity! Take Tylenol Extra-strength 1-2 tabs every 6 hours for the first day, then as needed. Oxycodone every 6-8 hours as needed for pain. Colace 100 mg every day as needed for constipation. Follow up in office with Dr. Hendrix in 1 week. ([phone]) Call Your Doctor If: -Your temperature exceeds 101.5? F -You experience excessive pain or swelling -You have an unexpected reaction to medication -You have excessive bleeding -You experience continued vomiting/nausea -Your incision begins to separate -Your incision shows signs of infection such as increased redness, swelling, excessive pain, drainage (light blood or clear fluid is normal) or heat Care Plan Goals: Return to baseline health and resume normal activities following recovery period. Health Concerns: acute perforated appendicitis Plan of Treatment: s/p laparoscopic appendectomy f/u in office in 1 week Assessment: Doing well post op. Discharge Date/Time: 09/10/24 09:12
== END 2024-09-10 09:12 | disposition home or self-care (01) | DRG 233 ==
LOC: HO.ED 03:03 → HO.EDOVER 03:28 → HO.S3 16:18
PROVIDERS: Physician Assistant Surgical; Surgery; Admitting Provider Surgery; Emergency Provider Emergency Medicine; PCP Nurse Practitioner; Visit Provider Surgery
PROC: 0DTJ4ZZ Resection of Appendix, Percutaneous Endoscopic Approach (ICD-10-PCS; CPT 44970; principal; 2024-09-02 13:30)
DX: K35.33 Acute appendicitis with perforation, localized peritonitis, and gangrene, with abscess (principal); K38.1 Appendicular concretions; Z20.822 Contact with and (suspected) exposure to COVID-19
CPT/HCPCS: 0241U; 36415; 74177; 75989; 80048; 80053; 83690; 85025; 85027; 87070; 87073; 87205; 88304; 99152; 99153; 99284; C1729; C1769; J0131; J1100; J1171; J1885; J2003; J2250; J2405; J2543; J2704; J3010; J7120; Q9967

== ENCOUNTER 2024-09-02 03:10 | Outpatient (BNV) | payer MEDICAID, SELFPAY | END 2024-09-08 13:17 | PROVIDERS: Admitting Provider Surgery; Emergency Provider Emergency Medicine; PCP Nurse Practitioner; Visit Provider Physician Assistant Surgical | DX: K65.1 Peritoneal abscess (principal) | CPT/HCPCS: 49406 ==

== ENCOUNTER 2024-09-02 03:10 | Outpatient (BNV) | payer MEDICAID, SELFPAY | END 2024-09-07 09:06 | PROVIDERS: Admitting Provider Surgery; Emergency Provider Emergency Medicine; PCP Nurse Practitioner; Visit Provider Radiology Diagnostic Radiology | DX: K68.11 Postprocedural retroperitoneal abscess (principal); R16.2 Hepatomegaly with splenomegaly, not elsewhere classified | CPT/HCPCS: 74177 ==

== ENCOUNTER → 2024-09-02 03:10 | Outpatient (BNV) | payer MEDICAID, SELFPAY | PROVIDERS: Admitting Provider Surgery; Emergency Provider Emergency Medicine; Visit Provider Surgery | DX: Z90.49 Acquired absence of other specified parts of digestive tract (principal); K35.32 Acute appendicitis with perforation, localized peritonitis, and gangrene, without abscess | CPT/HCPCS: 44970; 99024; 99222 ==

== ENCOUNTER 2024-09-14 13:34 | Outpatient (AMB) | payer MEDICAID, SELFPAY ==
--- NOTE | 2024-09-14 13:43 | MHC.OFFVIS ---
Vital Signs 09/14/24 13:50 Height 5 ft 11 in Weight 193 lb 12.581 oz BMI 27.0 BP 122/82 Blood Pressure Location Lt brachial Position Sitting Pulse 66 Intake Visit Reasons: s/p appy Intake Note: Patient is seen in office for post op assessment post lap appy. Pt c/o: admits to increase pain post surgery at the back and ribs, taking Oxy and alternating with Tylenol as needed. Bsa Officer Required: No Accompanied by: Self / Same As Patient Allergies No Known Allergies Allergy (Verified 09/14/24 13:50) HPI Comments Details: 19-year-old male patient status post laparoscopic appendectomy for perforated appendicitis. He had a prolonged postoperative course due to persistent fevers and abdominal pain. CT abdomen and pelvis was suggestive of an abscess and he subsequently underwent IR drainage. This revealed no growth after 5 days and most likely was a postoperative seroma from irrigation fluid. He was discharged home on Augmentin 875/125 mg p.o. b.i.d.. [facility] Medical History Patient denies medical problems No known health problems Surgical History S/P laparoscopic appendectomy (09/02/24) Family History Other Family history non-contributory Social History Household Members: Family Housing: Apartment Do you presently have visiting nurse or other home services: No Alcohol intake: never Patient Tobacco Use Status: Never used Tobacco Second Hand Smoke Exposure: No service: No Physical Exam Vital Signs: Last Vital Signs Pulse 66 09/14/24 13:50 BP 122/82 09/14/24 13:50 BMI result Body Mass Index 27.0 Const General: no acute distress Nutritional Appearance: well nourished Orientation/consciousness: patient oriented x3 Resp Effort & Inspection: normal respiratory effort GI Other: Well-healed trocar incisions without redness or discharge. IR drain site is clean and intact as well with no redness or tenderness. Skin Other: Warm dry, no rash Neuro General: patient oriented x3 Extrem Other: No edema Assessment & Plan Assessment & Plan (1) Appendicitis with perforation: Code(s): K35.32 - Acute appendicitis with perforation, localized peritonitis, and gangrene, without abscess Category: Medical Plan 19-year-old male patient status post laparoscopic appendectomy for acute appendicitis with perforation. His wounds are clean and intact without evidence of infection or hernia. He is still having some pain mainly in the back but generally feels improved. He may resume normal activities without restrictions and follow up as needed. Medications: Refilled oxycodone Partial Fill upon patient request. 5 mg PO Q4H PRN 10 tabs 0RF pain (scale score 7-10) Coding Level of Care Code Global (24283) Diagnoses Appendicitis with perforation K35.32
[2024-09-14 13:50] VITALS: BP 122/82; PULSE 66; BMI 27.0
== END 2024-09-14 13:53 | disposition home or self-care (01) ==
PROVIDERS: PCP Nurse Practitioner; Visit Provider Surgery
DX: K35.32 Acute appendicitis with perforation, localized peritonitis, and gangrene, without abscess (principal)
CPT/HCPCS: 99024

== ENCOUNTER → 2024-09-14 13:34 | Outpatient (BNVA) | payer MEDICAID, SELFPAY | PROVIDERS: PCP Nurse Practitioner; Visit Provider Surgery | DX: K35.32 Acute appendicitis with perforation, localized peritonitis, and gangrene, without abscess (principal) | CPT/HCPCS: 99212 ==

== ENCOUNTER 2025-01-02 15:15 | Emergency (ER) | payer MEDICAID, SELFPAY ==
--- NOTE | ~2025-01-02 | XR_ITS ---
CLINICAL HISTORY: pain 1 view abdomen Comparison: None Findings: No pneumoperitoneum or pneumatosis. No abnormal calcifications. No acute fractures. IMPRESSION: No acute finding. Normal bowel-gas pattern. Moderate right tasia colonic fecal loading could indicate constipation and represents a potential source of abdominal pain. This document has been electronically signed by: Too Allen MD on 01/02/2025 19:55:12
--- NOTE | 2025-01-02 15:22 | ED.GENADULT ---
HPI - General Adult General Chief complaint: Urogenital-Male Stated complaint: appendix removed 2 mos/feeling pain Time Seen by Provider: 01/02/25 18:10 Source: patient Limitations: no limitations History of Present Illness ED Provider: Shaylee Izquierdo PA-C HPI narrative: 19-year-old male presents with left lower abdominal discomfort x2 months. Patient states he is now status post laparoscopic appendectomy for acute appendicitis with perforation. 08/2024 . He has noted focal left lower quadrant discomfort described as burning, every time he urinates. Denies penile discharge, dysuria, hematuria, fever. Denies scrotal redness, swelling, warmth, pain. Patient states he does not have a bowel movement every day. Denies abdominal distention, inability to pass flatus, nausea, vomiting. Related Data Previous Rx's ?Medication ?Instructions ?Recorded amoxicillin 875 mg-potassium 1 tab PO BID #10 tabs 09/03/24 clavulanate 125 mg tablet docusate sodium 100 mg capsule 100 mg PO BID #30 caps 09/03/24 (Colace) oxycodone 5 mg tablet 5 mg PO Q4H PRN pain (scale score 09/14/24 7-10) #10 tabs Allergies Allergy/AdvReac Type Severity Reaction Status Date / Time No Known Allergies Allergy Verified 01/02/25 15:24 Review of Systems Review of Systems: Yes all other systems are reviewed and are negative Constitutional: Constitutional: Denies fatigue and Denies fever(s) Cardiovascular: Cardiovascular: Denies chest pain Gastrointestinal: Gastrointestinal: Reports abdominal pain, Reports constipation, Denies diarrhea, Denies nausea and Denies vomiting Genitourinary: Genitourinary: Denies genital pain, Denies dysuria, Denies flank pain, Denies penile discharge and Denies scrotal swelling Endocrine: Endocrine: Denies fatigue PMFSH Past Medical History Attestation statement: The following information was validated with the patient. Medical History Patient denies medical problems No known health problems Surgical History S/P laparoscopic appendectomy (09/02/24) Family History Family History Other Family history non-contributory Social History Social History Household Members: Family Housing: Apartment Do you presently have visiting nurse or other home services: No Alcohol intake: never Patient Tobacco Use Status: Never used Tobacco Second Hand Smoke Exposure: No Advance Directives: No Advance Directives Information Provided: Yes Do you have a plan to hurt others: No Plan service: No Physical Exam ED Vital Signs: Vital Signs - 24 hr 01/02/25 15:23 01/02/25 18:03 Temperature 98 F 97.2 F Pulse Rate 70 72 Respiratory Rate 20 18 Blood Pressure 133/83 141/61 H Pulse Oximetry 98 100 Oxygen Delivery Method Room Air Room Air BMI result Body Mass Index 25.9 Const Other: Alert Orientation/consciousness: patient oriented x3 Resp Effort & Inspection: normal respiratory effort Cardio Other: Normal peripheral perfusion GI Other: Abdomen is soft, nontender nondistended no guarding Skin Other: Warm dry no rash Neuro General: patient oriented x3, gait normal, no focal motor deficits and CN's II-XI intact bilaterally Psych Other: Cooperative Course Course Course Narrative: This is a rapid medical exam performed by Silvia Payan NP: Additional HPI, ROS, PE not included below will be deferred to primary provider. Patient is a 19-year-old male with history of appendectomy Aug 2024 presenting with complaint of intermittent LLQ abdominal pain with urination since his appendectomy. Denies any other symptoms. Plan: labs, UA Medical Decision Making Medical Decision Making MDM Narrative: 19-year-old male presents with left lower abdominal discomfort x2 months. Patient states he is now status post laparoscopic appendectomy for acute appendicitis with perforation. 08/2024 . He has noted focal left lower quadrant discomfort described as burning, every time he urinates. Denies penile discharge, dysuria, hematuria, fever. Denies scrotal redness, swelling, warmth, pain. Patient states he does not have a bowel movement every day. Denies abdominal distention, inability to pass flatus, nausea, vomiting. We will in recent surgery History: Per patient I have considered the following differential diagnoses: Postsurgical complication, constipation, bowel obstruction, diverticulitis, urethritis, orchitis, epididymitis, renal colic Plan: Screening labs including a urinalysis were obtained from triage, everything is unremarkable, he is passing a few white cells in the urine, but it was not infected. The patient was having intermittent focal left lower quadrant pain since the surgery, he was given an opiate at the time of discharge, I suspect constipation. He has no obstructive symptoms to suggest a bowel obstruction he does not require a CT scan. Given left lower quadrant pain, thought about diverticulitis, however he is afebrile, he is not having nausea vomiting and has no diarrhea. His symptoms are not consistent with renal colic, he has never had flank pain, he has had symptoms for 2 weeks, he has no related symptoms. Also thought about urethritis versus orchitis versus epididymitis, however there was no testicular pain or swelling, he is not having dysuria, no penile discharge. No indication for a scrotal ultrasound. I have independently reviewed the following tests: Labs: No leukocytosis, not anemic, no electrolyte abnormality, urine not infected KUB:constipated Lab Data 01/02/25 15:48 01/02/25 15:48 Labs: Lab Results 01/02/25 Range/Units 15:48 WBC 5.6 (4.8-10.8) X10*3/uL RBC 5.50 (4.60-5.80) X10*6/uL Hgb 15.5 (14.0-18.0) g/dl Hct 47.7 (42.0-52.0) % MCV 86.7 (80.0-98.0) fL MCH 28.2 (27.0-33.0) pg MCHC 32.5 (31.0-36.0) g/dl RDW 12.9 (11.0-16.0) % Plt Count 188 D (160-400) X10*3/uL MPV 11.8 (9.4-12.4) fL Immature Gran % (Auto) 0.2 (0.0-0.4) % Neut % (Auto) 63.8 (45-73) % Lymph % (Auto) 26.7 (20-40) % [place] % (Auto) 7.0 (2-11) % Eos % (Auto) 1.4 (0-4) % Baso % (Auto) 0.9 (0-2) % Lymph # (Auto) 1.5 (1.2-4.9) X10*3/uL [place] # (Auto) 0.4 (0.1-1.2) X10*3/uL Eos # (Auto) 0.1 (0.0-0.4) X10*3/uL Baso # (Auto) 0.1 (0.0-0.2) X10*3/uL Abs Immat Gran (auto) 0.01 (0.00-0.03) X10*3/uL Absolute Neuts (auto) 3.5 (2.0-8.3) x10*3/uL Absolute Nucleated RBC 0.000 (0.0-0.012) X10*3/uL Nucleated RBC % (auto) 0.0 (0.0-0.2) /100WBC Sodium 141 (135-145) mmol/L Potassium 4.5 (3.3-5.1) mmol/L Chloride 104 (96-108) mmol/L Carbon Dioxide 30 H (22-29) mmol/L Anion Gap 12 (12-20) BUN 23 H (9-16) mg/dL Creatinine 0.86 (0.5-1.4) mg/dL Estim Creat Clear Calc 141.4 Estimated GFR > 60 Random Glucose 101 (60-115) mg/dL Calcium 9.6 (8.4-10.2) mg/dL Total Bilirubin 0.5 (0.0-1.0) mg/dL AST 22 (5-37) U/L ALT 20 (0-40) U/L Alkaline Phosphatase 64 (39-117) U/L Total Protein 8.7 H (6.5-8.0) g/dL Albumin 4.7 (3.5-5.0) g/dL Urine Color Yellow Urine Appearance Clear Urine pH 6.5 (5.0-9.0) Ur Specific [place] 1.025 (1.005-1.025) Urine Protein Negative (Neg-Trace) mg/dL Urine Glucose (UA) Negative (Negative) mg/dL Urine Ketones Negative (Negative) mg/dL Urine Blood Negative (Negative) Urine Nitrite Negative (Negative) Ur Leukocyte Esterase Small (1+) H (Negative) Urine RBC 0-2 (0-2) /HPF Urine WBC 11-20 H (0-5) /HPF Ur Squamous Epith Cells 0-2 (0-2) /HPF Urine Bacteria None Seen (None Seen) Hyaline Casts 0-2 (0-2) /LPF Discharge Plan Discharge Clinical Impression: Constipation Patient Disposition: Home, Self-Care Instructions: Constipation (ED) Additional Instructions: All of your screening labs were normal. You were found to be constipated. See home care instructions. Use the Colace twice a day. This is a stool softener. Use [id number] MiraLax either 3 to 4 times a day until you begin having multiple large volume bowel movements, or drink it every hour until you are defecating clear fluid. Follow up with your primary care provider as needed. Prescriptions: No Action docusate sodium [Colace] 100 mg capsule 100 mg PO BID Qty: 30 0RF amoxicillin-pot clavulanate 875-125 mg tablet 1 tab PO BID Qty: 10 0RF oxycodone 5 mg tablet 5 mg PO Q4H PRN (Reason: pain (scale score 7-10)) Qty: 10 0RF Rx Instructions: Partial Fill upon patient request. Stand Alone Forms: Work/School Release Print Language: Other
[2025-01-02 15:23] VITALS: BP 133/83; PULSE 70; RESP 20; TEMP 36.6; O2SAT 98; BMI 25.9
[2025-01-02 15:54] LABS: MANUAL DIFF FLAG NO
--- OUTSIDE RECORDS SUMMARY | 2025-01-02 15:54 | XMS_ITS | Encounter Summary ---
Author Organization [employer] Address [address] [place] [address] [address] [place] [address] Care Team Providers Care Cell Changer Name Role Phone Porsche Lopez Primary Care Provider [phone] Lucina Crawford NP Primary Care Provider [phone] Encounter Details Date Type Department Care Team ([facility] st Contact Info) Description 09/09/2023 Telephone [facility] [address] [place] [address] Porsche Lopez FNP [address] [place] [address] Social History Tobacco Use Types Packs/Day Years Used Date Smoking Tobacco: Never Assessed Depression Answer Date Recorded Patient Health Questionnaire-9 Score 20 09/11/2023 Patient Health Questionnaire-9 Score 20 09/11/2023 Last PHQ-9: Questionnaire Data Not on file 1 11/12/2022 Depression Answer Date Recorded Patient Health Questionnaire-2 Score 6 09/11/2023 Sex and Gender Information Value Date Recorded Sex Assigned at Male 07/22/2022 10:27 AM EDT Legal Sex Male 10:27 AM EDT Gender Identity Male 07/22/2022 10:27 AM EDT Sexual Orientation Straight 07/22/2022 10 :27 AM EDT documented as of this encounter Plan of Treatment Not on file documented as of this encounter Visit Diagnoses Not on filedocumented in this encounter Care Teams Cell Changer Relationship Specialty Start Date End Date Porsche Lopez FNP [address] [place] [address] PCP - General Family Medicine 07/10/23 05/24/24 Lucina Crawford NP [address] [place] [id number] PCP - General Family Medicine 05/25/24 documented as of this encounter
[2025-01-02 15:55] LABS: Basophils Absolute Auto 0.1 X10*3/uL (0.0-0.2); Basophils Percent Auto 0.9 % (0-2); Eosinophils Absolute Auto 0.1 X10*3/uL (0.0-0.4); Eosinophils Percent Auto 1.4 % (0-4); Hematocrit 47.7 % (42.0-52.0); Hemoglobin 15.5 g/dl (14.0-18.0); Imm Gran Abs Auto 0.01 X10*3/uL (0.00-0.03); Imm Gran Pct Auto 0.2 % (0.0-0.4); Lymphocytes Absolute Auto 1.5 X10*3/uL (1.2-4.9); Lymphocytes Percent Auto 26.7 % (20-40); Mean Corpuscular HGB Conc 32.5 g/dl (31.0-36.0); Mean Corpuscular Hemoglobin 28.2 pg (27.0-33.0); Mean Corpuscular Volume 86.7 fL (80.0-98.0); Mean Platelet Volume 11.8 fL (9.4-12.4); Monocytes Absolute Auto 0.4 X10*3/uL (0.1-1.2); Neutrophils Absolute Auto 3.5 x10*3/uL (2.0-8.3); Neutrophils Percent Auto 63.8 % (45-73); Platelet Count 188 X10*3/uL (160-400); Red Cell Distribution Width 12.9 % (11.0-16.0); White Blood Count 5.6 X10*3/uL (4.8-10.8)
[2025-01-02 16:14] LABS: Appearance Urine Clear; Color Urine Yellow; Glucose Urine UA Negative (Negative); Leukocyte Esterase Urine Small (1+) (Negative); Nitrite Urine Negative (Negative); PH 6.5 (5.0-9.0); Specific Gravity - Urine 1.025 (1.005-1.025); UMIC TRIGGER UACC YES; Urine Blood Negative (Negative); Urine Ketones Negative (Negative); Urine Protein Negative (Neg-Trace)
[2025-01-02 16:19] LABS: Bacteria Urine None Seen (None Seen); Hyaline Casts Urine 0-2 /LPF (0-2); RBC Urine 0-2 /HPF (0-2); Squamous Epithelial Cell Urine 0-2 /HPF (0-2); UACC Culture Trigger YES
[2025-01-02 16:26] LABS: Alanine Aminotransferase 20 U/L (0-40); Albumin Level 4.7 g/dL (3.5-5.0); Anion Gap 12 (12-20); Aspartate Amino Transferase 22 U/L (5-37); Bilirubin Total 0.5 mg/dL (0.0-1.0); Blood Urea Nitrogen 23 mg/dL (9-16); Calcium 9.6 mg/dL (8.4-10.2); Carbon Dioxide 30 mmol/L (22-29); Chloride 104 mmol/L (96-108); Creatinine Clr Calc Pharmacy 141.4; Estimated Glomerular Filt Rate > 60; Glucose Random 101 mg/dL (60-115); Potassium 4.5 mmol/L (3.3-5.1); Sodium 141 mmol/L (135-145); Total Protein 8.7 g/dL (6.5-8.0)
[2025-01-02 16:32] LABS: Alkaline Phosphatase 64 U/L (39-117)
[2025-01-02 18:03] VITALS: BP 141/61; PULSE 72; RESP 18; TEMP 36.2; O2SAT 100
[2025-01-02 19:58] VITALS: BP 123/67; PULSE 60; RESP 16; TEMP 36.6; O2SAT 100
== END 2025-01-02 20:06 | disposition home or self-care (01) ==
PROVIDERS: Registered Nurse Emergency; Emergency Provider Emergency Medicine; PCP Nurse Practitioner
DX: K59.00 Constipation, unspecified (principal); R10.32 Left lower quadrant pain
CPT/HCPCS: 36415; 74018; 80053; 81001; 81003; 85025; 87086; 99283

== ENCOUNTER → 2025-01-02 18:25 | Outpatient (BNV) | payer MEDICAID, SELFPAY | PROVIDERS: Emergency Provider Emergency Medicine; PCP Nurse Practitioner; Visit Provider Radiology Diagnostic Radiology | DX: K56.41 Fecal impaction (principal) | CPT/HCPCS: 74018 ==